=== PATIENT | female | born 1950 | race Caucasian/White ===

== ENCOUNTER → 2022-07-02 09:14 | Outpatient (CLI) | payer MEDICARE, OTHER, SELFPAY ==
[2022-07-02 10:22] LABS: Add Manual Diff / Slide Review NO; Basophils Absolute Auto 100 /uL (0-100); Basophils Percent Auto 0.8 % (0-2); Eosinophils Absolute Auto 200 /uL (0-450); Eosinophils Percent Auto 3.1 % (2-4); Hematocrit 40.7 % (36-46); Hemoglobin 13.5 g/dL (12.0-16.0); Lymphocytes Absolute Auto 2000 /uL (1100-4500); Mean Corpuscular HGB Conc 33.1 % (30-36); Mean Corpuscular Hemoglobin 29.1 PG (26-34); Monocytes Absolute Auto 500 /uL (0-900); Monocytes Percent Auto 6.9 % (3-14); Neutrophils Absolute Auto 4000 /uL (1500-7000); Neutrophils Percent Auto 59.2 % (50-75); Platelet Count 280 X10^3/uL (150-400); Red Blood Cell Count 4.63 X10^6/uL (4.0-5.2); Red Cell Distribution Width 13.7 % (11.6-14.8); White Blood Cell Count 6.8 X10^3/uL (4.5-11.0)
[2022-07-02 10:48] LABS: Alanine Aminotransferase 63 IU/L (<35); Albumin 4.1 g/dL (3.5-5.0); Albumin Globulin Ratio 1.3 (1.0-2.8); Alkaline Phosphatase 86 U/L (38-126); Aspartate Aminotransferase 46 IU/L (14-36); Bilirubin Total 0.4 mg/dL (0.2-1.3); Blood Urea Nitrogen 12 mg/dL (7-17); Carbon Dioxide 29 mmol/L (22-32); Chloride 103 mmol/L (98-107); Cholesterol 141 mg/dL (140-199); Estimated Glomerular Filt Rate > 60 mL/min (>60); Globulin 3.2 g/dL (1.7-4.1); Glucose 93 mg/dL (80-110); HDL Cholesterol 32 mg/dL (40-60); HEMOLYSIS < 15 (0-50); LDL Cholesterol Calculated 86 mg/dL (<100); Sodium 141 mmol/L (137-145); Total Protein 7.3 g/dL (6.3-8.2); Triglycerides 115 mg/dL (35-150)
[2022-07-02 13:04] LABS: Free T3, Triiodothyronine Free 3.02 pg/mL (2.77-5.27); Free T4, Direct Thyroxine 0.91 ng/dL (0.78-2.19)
[2022-07-02 13:17] LABS: Thyroid Stimulating Hormone 3.89 uIU/mL (0.47-4.68)
== END ==
PROVIDERS: PCP Family Medicine; Referring Provider Family Medicine; Visit Provider Family Medicine
DX: E78.5 Hyperlipidemia, unspecified (principal); Z13.220 Encounter for screening for lipoid disorders; R53.83 Other fatigue; Z13.228 Encounter for screening for other metabolic disorders; Z13.29 Encounter for screening for other suspected endocrine disorder
CPT/HCPCS: 36415; 80053; 80061; 84439; 84443; 84481; 85025

== ENCOUNTER → 2022-07-19 09:24 | Outpatient (CLI) | payer MEDICARE, OTHER, SELFPAY ==
[2022-07-19 11:12] LABS: Alanine Aminotransferase 37 IU/L (<35); Albumin 3.7 g/dL (3.5-5.0); Albumin Globulin Ratio 1.2 (1.0-2.8); Alkaline Phosphatase 89 U/L (38-126); Aspartate Aminotransferase 27 IU/L (14-36); BUN Creatinine Ratio 18.3 (6-22); Bilirubin Total 0.2 mg/dL (0.2-1.3); Blood Urea Nitrogen 15 mg/dL (7-17); Calcium 8.8 mg/dL (8.4-10.2); Carbon Dioxide 29 mmol/L (22-32); Chloride 103 mmol/L (98-107); Estimated Glomerular Filt Rate > 60 mL/min (>60); Glucose 90 mg/dL (80-110); HEMOLYSIS < 15 (0-50); Potassium 4.2 mmol/L (3.4-5.1); Sodium 138 mmol/L (137-145); Total Protein 6.7 g/dL (6.3-8.2)
== END ==
PROVIDERS: PCP Family Medicine; Referring Provider Family Medicine; Visit Provider Family Medicine
DX: D64.9 Anemia, unspecified (principal); E78.5 Hyperlipidemia, unspecified
CPT/HCPCS: 36415; 80053

== ENCOUNTER → 2022-07-29 09:16 | Outpatient (CLI) | payer MEDICARE, OTHER, SELFPAY ==
--- NOTE | 2022-07-29 09:19 | DI.ECHO.S_ITS ---
[place] [facility]---------+ [facility] +---------+ : : [address] : : : : [id number] : : : : Phone: [phone]+ Echocardiogram Report + + :Name: LINDA MENG Study Date: 07/29/2022 Height: 64 in : :[facility] ReadingLocation: Weight: 155 lb : : Gender: Female BSA: 1.8 m2 : :: 1950 Age: 72 yrs BP: 134/75 mmHg: :Reason For Study: Cardiomegaly : :Ordering Physician: Silverio, : :Junie Performed By: Kameron Ellis : :Referring: Junie Sawyer : + + Interpretation Summary The ejection fraction is estimated to be 60-65%. There is mild mitral regurgitation. The left ventricle is normal in size. Procedure: A two-dimensional transthoracic echocardiogram with color flow and Doppler was performed. The study quality was technically adequate. There is no prior echocardiogram noted for this patient. The patient was in normal sinus rhythm during the exam. Left Ventricle: The left ventricle is normal in size. Proximal septal thickening is noted. There is no echo evidence for significant left ventricular outflow tract obstruction. Left ventricular systolic function is normal. The ejection fraction is estimated to be 60-65%. There are no focal wall motion abnormalities. Diastolic function could not be accurately assessed due to unobtainable data. Right Ventricle: The right ventricle is normal in size and function. Atria: Both atria are normal in size. The interatrial septum grossly appears intact with no obvious evidence for an atrial septal defect. Mitral Valve: There is mild to moderate mitral annular calcification. There is mild mitral regurgitation. Aortic Valve: There is mild aortic valve sclerosis. There is trace aortic regurgitation. Tricuspid Valve: The tricuspid valve is normal in structure and function. There is a trace or physiologic amount of tricuspid regurgitation. Pulmonary artery pressures cannot be estimated because of the lack of a measurable TR jet velocity. Pulmonic Valve: The pulmonic valve is normal in structure and function. There is no pulmonic valvular regurgitation. Great Vessels: The aortic root is normal size. The dimensions of the ascending aorta are normal. The IVC is of normal diameter and collapses greater than 50% with a sniff. This suggests a low right atrial pressure of 3 mm Hg. Pericardium/ Pleura There is no pericardial effusion. There is no pleural effusion. MMode/2D Measurements & Calculations LVIDd: 4.4 cm LVOT diam: 2.0 cm LVIDs: 2.8 cm Ao root diam: 2.3 cm FS: 36.4 % asc Aorta Diam: 2.7 cm IVSd: 0.70 cm LVPWd: 0.80 cm LV jimenez. diameter/BSA (cm/m^2): 2.5 LV sys. diameter/BSA (cm/m^2): 1.6 LA dimension: 2.7 cm RA long axis: 4.0 cm LA A2 area: 15.4 cm2 RA area: 7.7 cm2 LA A4 area: 16.2 cm2 RA vol: 12.4 ml LA length (vol): 4.7 cm RA : 7.1 ml/m2 LA vol: 44.9 ml LA vol index: 25.6 ml/m2 TAPSE_phl: 2.1 cm Doppler Measurements & Calculations Ao V2 max: 201.0 cm/sec LVOT Max Lazaro: 167.0 cm/sec Ao V2 mean: 147.0 cm/sec LV V1 max P.2 mmHg Ao max P.0 mmHg LV V1 VTI: 36.6 cm Ao mean P.0 mmHg MIKEY(I,D): 2.8 cm2 Ao V2 VTI: 40.6 cm MIKEY(V,D): 2.6 cm2 sev ratio: 0.90 MIKEY indexed to BSA (cm^2/m^2): 1.6 MV E max lazaro: 111.0 cm/sec SV(LVOT): 115.0 ml MV A max lazaro: 134.0 cm/sec MV E/A: 0.83 Med Peak E' Lazaro: 5.3 cm/sec E/E' med: 20.9 Lat Peak E' Lazaro: 6.4 cm/sec E/E' lat: 17.4 E/e' average: 19.1 MV dec time: 0.29 sec AV VR_phl: 0.83 MV P1/2t-pr_phl: 84.0 msec MIKEY(VTI)/BSA_phl: 1.6 Reading Physician:10:13 AM
== END ==
PROVIDERS: PCP Family Medicine; Referring Provider Family Medicine; Visit Provider Family Medicine
DX: I08.0 Rheumatic disorders of both mitral and aortic valves (principal); K64.9 Unspecified hemorrhoids; E78.5 Hyperlipidemia, unspecified; Z86.79 Personal history of other diseases of the circulatory system; Z82.49 Family history of ischemic heart disease and other diseases of the circulatory system
CPT/HCPCS: 93306

== ENCOUNTER → 2022-11-20 13:32 | Outpatient (CLI) | payer MEDICARE, OTHER, SELFPAY ==
[2022-11-20 14:15] LABS: Add Manual Diff / Slide Review NO; Basophils Absolute Auto 100 /uL (0-100); Eosinophils Absolute Auto 300 /uL (0-450); Eosinophils Percent Auto 4.3 % (2-4); Hematocrit 37.6 % (36-46); Hemoglobin 12.7 g/dL (12.0-16.0); Lymphocytes Absolute Auto 2000 /uL (1100-4500); Lymphocytes Percent Auto 28.3 % (25-40); Mean Corpuscular HGB Conc 33.9 % (30-36); Mean Corpuscular Hemoglobin 30.2 PG (26-34); Mean Corpuscular Volume 89.1 fL (80-100); Monocytes Absolute Auto 500 /uL (0-900); Monocytes Percent Auto 7.3 % (3-14); Neutrophils Absolute Auto 4200 /uL (1500-7000); Neutrophils Percent Auto 59.1 % (50-75); Platelet Count 327 X10^3/uL (150-400); Red Blood Cell Count 4.22 X10^6/uL (4.0-5.2); Red Cell Distribution Width 12.9 % (11.6-14.8); White Blood Cell Count 7.1 X10^3/uL (4.5-11.0)
[2022-11-20 14:28] LABS: Cholesterol 320 mg/dL (140-199); HDL Cholesterol 37 mg/dL (40-60); LDL Cholesterol Calculated 210 mg/dL (<100); Triglycerides 364 mg/dL (35-150)
[2022-11-20 14:30] LABS: Alanine Aminotransferase 19 IU/L (<35); Albumin 4.2 g/dL (3.5-5.0); Albumin Globulin Ratio 1.4 (1.0-2.8); Alkaline Phosphatase 79 U/L (38-126); Aspartate Aminotransferase 23 IU/L (14-36); BUN Creatinine Ratio 18.7 (6-22); Bilirubin Total 0.3 mg/dL (0.2-1.3); Blood Urea Nitrogen 14 mg/dL (7-17); Calcium 9.6 mg/dL (8.4-10.2); Carbon Dioxide 30 mmol/L (22-32); Chloride 101 mmol/L (98-107); Estimated Glomerular Filt Rate > 60 mL/min (>60); Globulin 2.9 g/dL (1.7-4.1); Glucose 79 mg/dL (80-110); HEMOLYSIS < 15 (0-50); Sodium 139 mmol/L (137-145); Total Protein 7.1 g/dL (6.3-8.2)
== END ==
PROVIDERS: PCP Family Medicine; Referring Provider Family Medicine; Visit Provider Family Medicine
DX: G43.909 Migraine, unspecified, not intractable, without status migrainosus (principal); E78.5 Hyperlipidemia, unspecified; H53.9 Unspecified visual disturbance; M54.2 Cervicalgia; R42 Dizziness and giddiness; I51.7 Cardiomegaly; K64.9 Unspecified hemorrhoids; Z82.49 Family history of ischemic heart disease and other diseases of the circulatory system; Z86.79 Personal history of other diseases of the circulatory system
CPT/HCPCS: 80053; 80061; 84443; 85025

== ENCOUNTER → 2023-04-07 07:58 | Outpatient (CLI) | payer MEDICARE, OTHER, SELFPAY ==
--- NOTE | 2023-04-07 07:59 | DI.ECHO.S_ITS ---
[place] [facility]---------+ [facility] +---------+ : : [address] : : : : [id number] : : : : Phone: [phone]+ Echocardiogram Report + + :Name: LINDA MENG Study Date: 04/07/2023 Height: 64 in : :[facility] ReadingLocation: Weight: 165 lb : : Gender: Female BSA: 1.8 m2 : :: 1950 Age: 72 yrs BP: 130/71 mmHg: :Reason For Study: CARDIAC MURMUR : :Ordering Physician: Loraine DOLLformed By: Lynne Farr : :Referring: CONY DOLL : + + Interpretation Summary The left ventricular cavity is small. Proximal septal thickening is noted. The left ventricular outflow velocity with valsalva is Moderate.. The left ventricle is hyperdynamic. The ejection fraction is estimated to be 70-75%. Previous LVEF 60 to 65%. MV E/A: 1.1 Med Peak E' Lazaro: 5.0 cm/sec E/E' med: 29.4. It suggest elevated filling pressure. The right ventricle is normal in size and function. Heavy posterior mitral annulus calcification with some restriction of posterior mitral leaflet without any significant mitral stenosis. Suspect mild mitral stenosis. There is moderate mitral regurgitation. Compared to the prior echo study, there has been an increase in the severity of mitral regurgitation. The aortic valve is not well visualized. The peak aortic velocity is 2.5 m/sec. The aortic valve mean gradient is 16 mmHg. Elevated LV outflow tract velocity about 1.6 m/s. Likely elevated LV outflow tract and aortic valve velocity due to hyperdynamic LV. However mild aortic stenosis cannot be ruled out. No hemodynamically significant aortic stenosis. There is mild aortic regurgitation. The IVC is of normal diameter and collapses greater than 50% with a sniff. This suggests a low right atrial pressure of 3 mm Hg. Procedure: A two-dimensional transthoracic echocardiogram with color flow and Doppler was performed. The study quality was technically adequate. Comparison is made with the echocardiogram of 07/29/2022. The patient was in sinus rhythm with heart rates between 64-68 bpm during the exam. Left Ventricle: Proximal septal thickening is noted. There is mild concentric left ventricular hypertrophy. The left ventricular cavity is small. The left ventricular outflow velocity with valsalva is Moderate.. There is no thrombus. The ejection fraction is estimated to be 70-75%. The left ventricle is hyperdynamic. There are no focal wall motion abnormalities. MV E/A: 1.1 Med Peak E' Lazaro: 5.0 cm/sec E/E' med: 29.4. It suggest elevated filling pressure. Right Ventricle: The right ventricle is normal in size and function. The right ventricular systolic function is normal. Atria: The left atrium is mildly dilated. The left atrium has mildly increased in size since the prior echo exam. Right atrial size is normal. There is no Doppler evidence for an interatrial shunt. Mitral Valve: The mitral valve leaflets are mildly calcified. Heavy posterior mitral annulus calcification with some restriction of posterior mitral leaflet without any significant mitral stenosis. The mitral valve mean gradient is 4.1 mmHg. There is moderate mitral regurgitation. There are multiple regurgitant jets present. Compared to the prior echo study, there has been an increase in the severity of mitral regurgitation. Aortic Valve: The aortic valve is moderately calcified. There is discrete nodular thickening of the non- coronary cusp. The aortic valve is not well visualized. The peak aortic velocity is 2.5 m/sec. The aortic valve mean gradient is 16 mmHg. There is mild aortic stenosis. Elevated LV outflow tract velocity about 1.6 m/s. Likely elevated LV outflow tract and aortic valve velocity due to hyperdynamic LV. However mild aortic stenosis cannot be ruled out. No hemodynamically significant aortic stenosis. There is mild aortic regurgitation. Tricuspid Valve: There is trace tricuspid regurgitation. Pulmonary artery pressures cannot be estimated because of the lack of a measurable TR jet velocity. Pulmonic Valve: The pulmonic valve is not well seen, but is grossly normal. There is no pulmonic valvular regurgitation. Great Vessels: The aortic root is normal size. The dimensions of the ascending aorta are normal. The IVC is of normal diameter and collapses greater than 50% with a sniff. This suggests a low right atrial pressure of 3 mm Hg. Pericardium/ Pleura There is no pericardial effusion. There is no pleural effusion. MMode/2D Measurements & Calculations LVIDd: 3.7 cm LVOT diam: 1.8 cm LVIDs: 2.2 cm Ao root diam: 2.3 cm FS: 39.4 % asc Aorta Diam: 2.6 cm IVSd: 1.0 cm Ao Arch Diam (Prox Trans): 3.2 cm LVPWd: 1.3 cm LV jimenez. diameter/BSA (cm/m^2): 2.0 LV sys. diameter/BSA (cm/m^2): 1.2 LA A2 area: 18.8 cm2 RA long axis: 3.8 cm LA A4 area: 21.6 cm2 RA area: 10.4 cm2 LA length (vol): 5.4 cm RA vol: 23.9 ml LA vol: 64.3 ml RA : 13.3 ml/m2 LA vol index: 35.7 ml/m2 IVC diam: 1.5 cm RVD1 (basal): 2.9 cm RVD2 (mid): 2.3 cm TAPSE: 1.8 cm Doppler Measurements & Calculations Ao V2 max: 248.5 cm/sec LVOT Max Lazaro: 157.3 cm/sec Ao V2 mean: 187.2 cm/sec LV V1 max P.9 mmHg Ao max P.0 mmHg LV V1 VTI: 38.6 cm Ao mean P.7 mmHg MIKEY(I,D): 1.7 cm2 Ao V2 VTI: 57.0 cm MIKEY(V,D): 1.6 cm2 sev ratio: 0.68 MIKEY indexed to BSA (cm^2/m^2): 0.97 MV E max lazaro: 147.5 cm/sec PA V2 max: 120.7 cm/sec MV A max lazaro: 131.2 cm/sec PA V2 mean: 82.2 cm/sec MV E/A: 1.1 PA mean P.0 mmHg Med Peak E' Lazaro: 5.0 cm/sec PA pr(Accel): 34.5 mmHg E/E' med: 29.4 Lat Peak E' Lazaro: 5.1 cm/sec E/E' lat: 29.0 E/e' average: 29.2 MV dec time: 0.33 sec MVA(VTI): 1.9 cm2 MV V2 mean: 96.1 cm/sec SV(LVOT): 99.6 ml MV mean P.1 mmHg MV V2 VTI: 51.9 cm Reading Physician:04:38 PM
== END ==
PROVIDERS: PCP Family Medicine; Referring Provider Family Medicine; Visit Provider Family Medicine
DX: I08.0 Rheumatic disorders of both mitral and aortic valves; R01.1 Cardiac murmur, unspecified; Z82.49 Family history of ischemic heart disease and other diseases of the circulatory system
CPT/HCPCS: 93306

== ENCOUNTER 2023-04-28 12:04 | Emergency (ER) | payer MEDICARE, OTHER, SELFPAY ==
[2023-04-28 12:45] VITALS: BP 183/77; PULSE 87; RESP 15; TEMP 36.9; O2SAT 98; BMI 28.3
--- NOTE | 2023-04-28 13:40 | ED_ITS ---
HPI - Extremity Problem <Veena Irvin PA-C - Last Filed: 04/28/23 18:32> General Chief complaint: Extremity Problem,Nontraumatic Stated complaint: lt arm pain, history of heart murmur Time Seen by Provider: 04/28/23 13:38 Source: patient Mode of arrival: Family Vehicle History of Present Illness HPI Narrative: 73-year-old female with past medical history asthma, sleep apnea, osteoarthritis, LVH, hyperlipidemia presents to the ED with left shoulder pain that radiates down to the left wrist. Patient states she is had these symptoms for the last 2-3 weeks, states that this onset of symptoms occurred after she h elped take down a tent after a are show. Patient states that the pain is aggravated with movement of the arm. Patient notes tenderness to palpation of the right upper shoulder. Patient denies chest pain, shortness of breath, nausea, vomiting, lightheadedness, dizziness, syncope. Related Data Home Medications Medication Instructions Recorded Confirmed meloxicam 7.5 mg tablet 7.5 mg PO BID 07/02/22 12/09/22 Previous Rx's Medication Instructions Recorded meclizine 25 mg tablet 25 mg PO DAILY PRN dizziness #20 12/09/22 tabs pravastatin 40 mg tablet 40 mg PO BEDTIME #90 tabs 12/25/22 desvenlafaxine succinate 100 mg 50 mg PO DAILY #30 tabs 03/28/23 tablet,extended release 24 hr (Pristiq) Allergies Allergy/AdvReac Type Severity Reaction Status Date / Time aspirin AdvReac Intermediate dyspnea Verified 04/28/23 13:02 Review of Systems <Veena Irvin PA-C - Last Filed: 04/28/23 18:32> Review of Systems ROS Unobtainable: All systems reviewed & are unremarkable except as noted in HPI and below Constitutional Constitutional: Denies chills, Denies fatigue, Denies fever(s), Denies frequent falls, Denies lethargy and Denies weakness Eyes Eyes: Denies change in vision, Denies eye discharge, Denies irritation and Denies loss of vision ENT Ears, Nose, Mouth, and Throat: Denies change in voice, Denies dizziness, Denies neck pain, Denies sore throat and Denies throat swelling Cardiovascular Cardiovascular: Denies chest pain, Denies irregular heart rhythm, Denies lightheadedness, Denies palpitations, Denies dyspnea, Denies dyspnea on exertion and Denies orthopnea Respiratory Respiratory: Denies cough, Denies dyspnea, Denies dyspnea on exertion and Denies wheezing Gastrointestinal Gastrointestinal: Denies abdominal pain, Denies change in bowel habits, Denies diarrhea, Denies nausea and Denies vomiting Genitourinary Genitourinary: Denies hematuria, Denies flank pain, Denies urinary incontinence and Denies urinary urgency Musculoskeletal Musculoskeletal: Denies back pain, Denies muscle weakness, Denies neck pain, Denies numbness and Denies tingling Comments: Left shoulder pain, radiating into the left wrist Integumentary/Breasts Skin/Breast: Denies pruritus, Denies erythema, Denies rash and Denies wounds Neurologic Neurologic: Denies behavioral changes, Denies confusion, Denies dizziness, Denies frequent falls, Denies loss of vision, Denies numbness, Denies tingling and Denies weakness Psychiatric Psychiatric: Denies anxiety, Denies behavioral changes, Denies confusion, Denies depression, Denies homicidal ideation and Denies suicidal ideation Endocrine Endocrine: Denies fatigue, Denies flushing and Denies palpitations Hematologic/Lymphatic Hematologic/Lymphatic: Denies easy bruising Allergic/Immunologic Allergic/Immunologic: Denies urticaria, Denies throat swelling and Denies whee zing Patient History <eVena Irvin PA-C - Last Filed: 04/28/23 18:32> Medical History Allergies Anxiety (~1999) Asthma Chicken pox Hearing loss Hx of cardiac murmur Migraines (~1977) Osteoarthritis (~1999) Osteopenia (~2008) Sleep apnea (~2019) Transaminitis Vertigo (~2017) Wears glasses Surgical History Anesthesia History of left knee replacement (~2007) History of partial hysterectomy (~1981) History of shoulder surgery (~2014) History of total right knee replacement (~2020) Status post rotator cuff repair (~2017) Family History Father Cancer Mother Cancer Brother Diabetes mellitus Hyperlipidemia Brother Rheumatoid arthritis Heart valve replaced Hyperlipidemia History of heart disease Sister Arthritis Sister Rheumatoid arthritis Heart valve replaced Grandfather History of heart disease Grandmother Breast cancer Grandfather Cancer Grandmother Cancer Family/Other Crohn's disease Social History Smoking Status: Never smoker alcohol intake: current substance use type: does not use Smoking Status: Never smoker alcohol intake frequency: 0-2 drinks per day Substance Use Type: does not use Exam <Veena Irvin PA-C - Last Filed: 04/28/23 18:32> Narrative Exam Narrative: Const General:?cooperative, healthy appearing and comfortable [facility] Head:?normal to inspection Ears:?hearing grossly normal bilaterally Nose:?external nose normal Face and sinus:?normal facial exam and sinuses nontender Mouth:?oral mucosae normal Throat:?posterior oropharynx normal Eyes General:?appearance normal, both eyes and all related structures Neck Neck:?normal visual inspection and no lymphadenopathy noted Resp Effort & Inspection:?normal respiratory effort Auscultation:?clear to auscultation bilaterally Cardio Rate:?regular rate Rhythm:?regular rhythm Musculoskeletal There is tenderness to palpation of the left upper shoulder, consistent with musculoskeletal etiology. There is full range of motion. Strength and sensation is intact. Patient is neurovascularly intact. Neuro General:?patient alert, patient awake and patient oriented x3 Initial Vital Signs Initial Vital Signs: Vital Signs Temperature 98.5 F 04/28/23 12:45 Pulse Rate 87 04/28/23 12:45 Respiratory Rate 15 04/28/23 12:45 Blood Pressure 183/77 H 04/28/23 12:45 Pulse Oximetry 98 04/28/23 12:45 Oxygen Delivery Method Room Air 04/28/23 12:45 <Jessica Post DO - Last Filed: 04/30/23 07:43> Initial Vital Signs Initial Vital Signs: Vital Signs Temperature 98.5 F 04/28/23 12:45 Pulse Rate 87 04/28/23 12:45 Respiratory Rate 15 04/28/23 12:45 Blood Pressure 183/77 H 04/28/23 12:45 Pulse Oximetry 98 04/28/23 12:45 Oxygen Delivery Method Room Air 04/28/23 12:45 Course <Veena Irvin PA-C - Last Filed: 04/28/23 18:32> Orders Ordered: Discontinued Medications Lidocaine (Lidocaine Patch 1 Each Adh..Patch) 1 each TOP NOW ONE Stop: 04/28/23 14:01 Last Admin: 04/28/23 14:13 Dose: 1 each Documented By: CTS Vital Signs Vital signs: Vital Signs - 8 hr 04/28/23 12:45 04/28/23 14:15 Temperature 98.5 F Pulse Rate 87 61 Respiratory Rate 15 16 Blood Pressure 183/77 H 163/72 H Pulse Oximetry 98 98 Oxygen Delivery Method Room Air Room Air <Jessica Post DO - Last Filed: 04/30/23 07:43> Orders Ordered: Discontinued Medications Lidocaine (Lidocaine Patch 1 Each Adh..Patch) 1 each TOP NOW ONE Stop: 04/28/23 14:01 Last Admin: 04/28/23 14:13 Dose: 1 each Documented By: CTS Vital Signs Vital signs: Vital Signs - 8 hr 04/28/23 12:45 04/28/23 14:15 Temperature 98.5 F Pulse Rate 87 61 Respiratory Rate 15 16 Blood Pressure 183/77 H 163/72 H Pulse Oximetry 98 98 Oxygen Delivery Method Room Air Room Air MDM - Extremity (Nontraumatic) <Veena Irvin PA-C - Last Filed: 04/28/23 18:32> MDM Narrative Medical decision making narrative: 73-year-old female with past medical history asthma, sleep apnea, osteoarthritis, LVH, hyperlipidemia presents to the ED with left shoulder pain that radiates down to the left wrist. History and physical exam is most consistent with a musculoskeletal etiology. Obtained an EKG which shows some sinus bradycardia, left ventricular hypertrophy but no acute ST T changes, no axis deviation. Recommend supportive care with lidocaine patch, Tylenol, ibuprofen, heat packs. Recommend follow-up with PCP and physical therapy for further evaluation. ED return precautions were discussed with patient. Patient verbalized understanding. Medical records reviewed: Yes Discharge Plan Departure Patient Disposition: Home Clinical Impression: Shoulder pain Instructions: DI for Shoulder Pain Activity Restrictions/Additional Instructions: You were evaluated in the ED today for left-sided shoulder pain and arm pain. Your EKG was normal. Your physical exam and history is reassuring, your pain is most consistent with a musculoskeletal sprain/strain. You may apply lidocaine patches, heat packs, take Tylenol or ibuprofen for your symptoms. Please follow-up with your PCP and physical therapist as soon as possible. Return to the ED if you have worsening symptoms, chest pain, shortness of breath. Prescriptions: No Action meclizine 25 mg tablet 25 mg PO DAILY PRN (Reason: dizziness) Qty: 20 0RF Rx Instructions: take 1/2 tab to 1 tab at bedtime. Will make drowsy, do not drive during therapy desvenlafaxine succinate [Pristiq] 100 mg tablet extended release 24 hr 50 mg PO DAILY Qty: 30 11RF meloxicam 7.5 mg tablet 7.5 mg PO BID Patient Comments: TAKE ONE OR TWO TABLETS BY MOUTH DAILY pravastatin 40 mg tablet 40 mg PO BEDTIME Qty: 90 3RF Referrals: Junie Sawyer DO [Primary Care Provider] - Stand Alone Forms: Patient Portal/API <Jessica Post DO - Last Filed: 04/30/23 07:43> Cosign ED Attending Dilcia Attestation: I was immediately available in the department for consultation. Documentation has been reviewed.
[2023-04-28] MEDS: LIDOCAINE PATCH 1 EACH ADH..PATCH TOP (14:13)
[2023-04-28 14:15] VITALS: BP 163/72; PULSE 61; RESP 16; O2SAT 98
== END 2023-04-28 14:16 | disposition home or self-care (01) ==
PROVIDERS: Emergency Provider Student in an Organized Health Care Education/Training Program; PCP Family Medicine
DX: M25.512 Pain in left shoulder (principal); R07.9 Chest pain, unspecified
CPT/HCPCS: 93005; 99282; 99283

== ENCOUNTER → 2023-12-13 08:31 | Outpatient (CLI) | payer MEDICARE, OTHER, SELFPAY ==
--- NOTE | 2023-12-13 09:00 | DI.MRI.S_ITS ---
PROCEDURE: MR HEAD/BRAIN WO/W CON INDICATIONS: Worsening headaches now intractable TECHNIQUE: Noncontrast axial T1 spin echo, axial T2 fast spin echo, sagittal and axial FLAIR, coronal T2 fast spin echo, axial gradient echo, axial diffusion and ADC through the brain. After the administration of contrast, axial and coronal and sagittal 3D VIBE or T1 spin echo with fat saturation through the brain. COMPARISON: None. FINDINGS: Image quality: Excellent. CSF Spaces: Basal cisterns are patent. No extra-axial fluid collections. Ventricles are normal in size and shape. Brain: No intracranial masses or hemorrhage. Santana/white matter interface is normal. Brainstem appears normal. Diffusion-weighted sequence is unremarkable without evidence of acute infarct. Normal intravascular flow voids are present. Mild white matter chronic ischemic change Skull and face: Calvarial marrow is normal in signal. Orbits appear normal. Bilateral intraocular lens replacements noted. Sinuses: Sinuses and mastoids appear clear. IMPRESSION: Mild white matter chronic ischemic change without intracranial hemorrhage, infarct or mass lesion Approved by: Brown Forde M.D. on 12/15/2023 at 18:53
== END ==
PROVIDERS: PCP Family Medicine; Referring Provider Family Medicine; Visit Provider Family Medicine
DX: G43.911 Migraine, unspecified, intractable, with status migrainosus (principal); R42 Dizziness and giddiness; H93.19 Tinnitus, unspecified ear
CPT/HCPCS: 70553; A9579

== ENCOUNTER → 2024-03-25 14:24 | Outpatient (CLI) | payer MEDICARE, OTHER, SELFPAY ==
--- NOTE | 2024-03-25 14:28 | DI.RAD.S_ITS ---
PROCEDURE: XR KNEE LT 3V INDICATIONS: Left knee pain TECHNIQUE: 3 views of the knee were acquired. COMPARISON: None. FINDINGS: Bones: No fractures or dislocations. No suspicious bony lesions. Knee arthroplasty. Hardware is intact without hardware fracture or periprosthetic lucency to suggest loosening. Alignment is stable. Soft tissues: No joint effusion. No suspicious soft tissue calcifications. IMPRESSION: Knee arthroplasty without of hardware fracture or periprosthetic lucency to suggest loosening. Dictated by: Kandis Shepherd M.D. on 03/25/2024 at 23:18 Approved by: Kandis Shepherd M.D. on 03/25/2024 at 23:19
== END ==
PROVIDERS: PCP Family Medicine; Referring Provider Physician Assistant; Visit Provider Physician Assistant
DX: M25.562 Pain in left knee (principal); Z96.652 Presence of left artificial knee joint
CPT/HCPCS: 73562

== ENCOUNTER → 2024-03-31 11:34 | Outpatient (CLI) | payer MEDICARE, OTHER, SELFPAY ==
[2024-03-31 13:55] LABS: COVID19 -Nasal RAPID Negative (Negative)
== END ==
PROVIDERS: PCP Family Medicine; Visit Provider Physician Assistant
DX: Z20.822 Contact with and (suspected) exposure to COVID-19 (principal)
CPT/HCPCS: 87635

== ENCOUNTER 2024-04-02 10:13 | Emergency (ER) | payer MEDICARE, OTHER, SELFPAY ==
[2024-04-02 10:14] VITALS: BP 178/77; PULSE 81; RESP 14; TEMP 36.6; O2SAT 97; BMI 27.9
--- NOTE | 2024-04-02 10:18 | EKG_ITS ---
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
--- NOTE | 2024-04-02 10:18 | DI.RAD.S_ITS ---
PROCEDURE: XR CHEST 1V INDICATIONS: Shortness of breath TECHNIQUE: One view of the chest was acquired. COMPARISON: None. FINDINGS: Surgical changes and devices: None. Lungs and pleura: Lungs are clear. No pleural effusions or pneumothorax. Mediastinum: Mediastinal contours appear normal. Heart size is normal. Bones and chest wall: No suspicious bony lesions. Overlying soft tissues appear unremarkable. IMPRESSION: No acute cardiopulmonary abnormality is seen. Dictated by: Rafi Rodriguez M.D. on 04/02/2024 at 11:32 Approved by: Rafi Rodriguez M.D. on 04/02/2024 at 11:33
[2024-04-02 10:22] VITALS: PULSE 71; RESP 20; O2SAT 97
[2024-04-02 10:30] VITALS: BP 156/68; PULSE 68; O2SAT 97
--- NOTE | 2024-04-02 10:33 | ED.GENADULT ---
HPI - General Adult General Chief complaint: Shortness of Breath/Dyspnea Stated complaint: diff breathing, poss reaction to medication Time Seen by Provider: 04/02/24 10:15 Source: patient Mode of arrival: Ambulatory History of Present Illness HPI narrative: Patient is a 73-year-old female who states she had a history of asthma as a child. Not on any inhalers. Is here for evaluation of a couple days of difficulty breathing. States that she feels like she was wheezing specific when she was lying down. She has been exposed to COVID. Was seen by primary provider yesterday. Had a COVID test was negative. She was also on metoprolol. Was told that potentially metoprolol could trigger her asthma. She denies chest pain. No lower extremity swelling. No fevers. Related Data Home Medications Medication Instructions Recorded Confirmed B vitamins w folate PO 11/26/23 03/25/24 magnesium glycinate PO 11/26/23 03/25/24 Previous Rx's Medication Instructions Recorded losartan 25 mg tablet 25 mg PO DAILY #90 tabs 11/26/23 pravastatin 40 mg tablet 40 mg PO BEDTIME #90 tabs 01/05/24 amlodipine 5 mg tablet 5 mg PO DAILY #90 tabs 01/07/24 metoprolol succinate 25 mg 25 mg PO DAILY #90 tabs 03/08/24 tablet,extended release 24 hr citalopram 20 mg tablet 20 mg PO DAILY #30 tabs 03/31/24 meloxicam 15 mg tablet 15 mg PO DAILY PRN arthritis pain 03/31/24 #30 tabs Allergies Allergy/AdvReac Type Severity Reaction Status Date / Time aspirin AdvReac Intermediate dyspnea Verified 04/02/24 10:22 Review of Systems Review of Systems ROS Unobtainable: All systems reviewed & are unremarkable except as noted in HPI and below Patient History Medical History Intractable migraine with status migrainosus Family history of aortic stenosis Transaminitis Wears glasses Hearing loss Osteoarthritis (~1999) Sleep apnea (~2019) Asthma Allergies Migraines (~1977) Osteopenia (~2008) Chicken pox Vertigo (~2017) Hx of cardiac murmur Surgical History Anesthesia History of total right knee replacement (~2020) History of shoulder surgery (~2014) History of left knee replacement (~2007) Status post rotator cuff repair (~2017) History of partial hysterectomy (~1981) Family History Father Cancer Mother Cancer Brother Diabetes mellitus Hyperlipidemia Brother Rheumatoid arthritis Heart valve replaced Hyperlipidemia History of heart disease Sister Arthritis Sister Rheumatoid arthritis Heart valve replaced Grandfather History of heart disease Grandmother Breast cancer Grandfather Cancer Grandmother Cancer Family/Other Crohn's disease Social History Smoking Status: Never smoker alcohol intake: current substance use type: does not use Smoking Status: Never smoker alcohol intake frequency: holidays/special occasions only Substance Use Type: does not use Exam Initial Vital Signs Initial Vital Signs: Vital Signs Temperature 97.9 F 04/02/24 10:14 Pulse Rate 81 04/02/24 10:14 Respiratory Rate 14 04/02/24 10:14 Blood Pressure 178/77 H 04/02/24 10:14 Pulse Oximetry 97 04/02/24 10:14 Oxygen Delivery Method Room Air 04/02/24 10:14 Const General: cooperative, comfortable and No ill appearing HENMT Head: normal to inspection and normocephalic Resp Effort & Inspection: normal respiratory effort Auscultation: clear to auscultation bilaterally Cardio Rate: regular rate Rhythm: regular rhythm Skin General: no rashes or lesions noted Extrem General: No edema Course Orders Ordered: ED Orders 04/02/24 10:18 XR chest 1V Stat EKG-12 Lead Stat 04/02/24 10:25 Complete Blood Count AUTO DIFF Stat Comprehensive Metabolic Panel Stat Lipase Stat Troponin & CK Cardiac Panel Stat 04/02/24 10:30 Respiratory Panel (Film Array) Stat Vital Signs Vital signs: Vital Signs - 8 hr 04/02/24 10:14 04/02/24 10:22 04/02/24 10:30 Temperature 97.9 F Pulse Rate 81 71 Respiratory Rate 14 20 Blood Pressure 178/77 H 156/68 H Pulse Oximetry 97 97 Oxygen Delivery Method Room Air 04/02/24 10:30 04/02/24 11:00 04/02/24 11:00 Temperature Pulse Rate 68 66 Respiratory Rate 14 Blood Pressure 136/65 Pulse Oximetry 97 99 Oxygen Delivery Method 04/02/24 11:30 Temperature Pulse Rate 65 Respiratory Rate Blood Pressure Pulse Oximetry 96 Oxygen Delivery Method Medical Decision Making Lab Data Lab results reviewed: Yes I reviewed the patient's lab results. 04/02/24 10:25 04/02/24 10:25 Labs: Lab Results 04/02/24 04/02/24 Range/Units 10:25 10:30 WBC 8.7 (4.5-11.0) X10^3/uL RBC 4.21 (4.0-5.2) X10^6/uL Hgb 12.2 (12.0-16.0) g/dL Hct 36.8 (36-46) % MCV 87.4 (80-100) fL MCH 29.1 (26-34) PG MCHC 33.3 (30-36) % RDW 14.1 (11.6-14.8) % Plt Count 327 (150-400) X10^3/uL Neut % (Auto) 67.8 (50-75) % Lymph % (Auto) 21.2 L (25-40) % [place] % (Auto) 8.0 (3-14) % Eos % (Auto) 2.4 (2-4) % Baso % (Auto) 0.6 (0-2) % Neut # (Auto) 5900 (6607-7823) /uL Lymph # (Auto) 1800 (3666-0748) /uL [place] # (Auto) 700 (0-900) /uL Eos # (Auto) 200 (0-450) /uL Baso # (Auto) 0 (0-100) /uL Sodium 139 (137-145) mmol/L Potassium 4.3 (3.4-5.1) mmol/L Chloride 110 H (98-107) mmol/L Carbon Dioxide 22 (22-32) mmol/L BUN 16 (7-17) mg/dL Creatinine 1.00 (0.52-1.04) mg/dL Estimated GFR 60 (>60) mL/min BUN/Creatinine Ratio 16.0 (6-22) Glucose 110 (80-110) mg/dL Calcium 9.1 (8.4-10.2) mg/dL Total Bilirubin 0.4 (0.2-1.3) mg/dL AST 26 (14-36) IU/L ALT 22 (<35) IU/L Alkaline Phosphatase 77 (38-126) U/L Total Creatine Kinase 195 H (30-135) U/L Troponin I < 0.012 (0.01-0.034) ng/mL Total Protein 7.3 (6.3-8.2) g/dL Albumin 4.3 (3.5-5.0) g/dL Globulin 3.0 (1.7-4.1) g/dL Albumin/Globulin Ratio 1.4 (1.0-2.8) Lipase 242 (23-300) U/L Chlamy pneumoniae PCR Not detected (Not Detect) Adenovirus (PCR) Not detected (Not Detect) B.parapertussis DNA PCR Not detected (Not Detecte) Coronavirus OC43 (PCR) Not detected (Not Detect) Coronavirus HKU1 (PCR) Not detected (Not Detect) Coronavirus 229E (PCR) Not detected (Not Detect) SARS-CoV-2 (PCR) Detected H (Not Detecte) Coronavirus NL63 (PCR) Not detected (Not Detect) Human Metapneumovir PCR Not detected (Not Detect) Influenza Type A (PCR) Not detected (Not Detect) Influenza Type B (PCR) Not detected (Not Detect) M. pneumoniae (PCR) Not detected (Not Detect) Parainfluenza 1 (PCR) Not detected (Not Detect) Parainfluenza 2 (PCR) Not detected (Not Detect) Parainfluenza 3 (PCR) Not detected (Not Detect) Parainfluenza 4 (PCR) Not detected (Not Detect) RSV (PCR) Not detected (Not Detect) Entero/Rhino (PCR) Not detected (Not Detect) ECG Data Attestation: I personally reviewed and interpreted this ECG as follows: Interpretation: Sinus rhythm Ventricular rate is 67 LVH Inverted T-waves lead 2 3 AVF, biphasic T-wave in V2, inverted T-waves V3 V4 V5 V6 Comparison to prior EKG from 04/28/2023 showed biphasic T-waves in V2 and V3 and inverted T-waves V4 V5 V6 MDM Narrative Medical decision making narrative: Patient is positive for COVID-19 which does explain her presenting symptoms today. Her EKG is unchanged from prior. No chest pain. Lungs are clear. Not hypoxic. No indication for antibiotics. Low suspicion for ACS/CHF. Discuss this with the patient. We discussed return precautions and follow-up instructions. She expressed understanding and agreement. Discharge Plan Departure Patient Disposition: Home Clinical Impression: COVID-19 Instructions: COVID-19 Activity Restrictions/Additional Instructions: Please follow all current CDC guidelines with regard to quarantine and your positive COVID-19 status. Continue to take all of your medications as directed. Contact your primary doctor for a follow-up. Return to the emergency department for new or worsening symptoms Prescriptions: No Action pravastatin 40 mg tablet 40 mg PO BEDTIME Qty: 90 3RF metoprolol succinate 25 mg tablet extended release 24 hr 25 mg PO DAILY Qty: 90 0RF losartan 25 mg tablet 25 mg PO DAILY Qty: 90 1RF B vitamins w folate PO magnesium glycinate PO amlodipine 5 mg tablet 5 mg PO DAILY Qty: 90 1RF meloxicam 15 mg tablet 15 mg PO DAILY PRN (Reason: arthritis pain) Qty: 30 1RF Rx Instructions: Take one tablet as needed daily for arthritis pain citalopram 20 mg tablet 20 mg PO DAILY Qty: 30 1RF Rx Instructions: Take 1/2 tablet daily for one week, then one tablet daily thereafter Referrals: Junie Sawyer DO [Primary Care Provider] - Stand Alone Forms: Patient Portal/API
[2024-04-02 10:47] LABS: Add Manual Diff / Slide Review NO; Basophils Absolute Auto 0 /uL (0-100); Basophils Percent Auto 0.6 % (0-2); Eosinophils Absolute Auto 200 /uL (0-450); Eosinophils Percent Auto 2.4 % (2-4); Hematocrit 36.8 % (36-46); Hemoglobin 12.2 g/dL (12.0-16.0); Lymphocytes Absolute Auto 1800 /uL (1100-4500); Lymphocytes Percent Auto 21.2 % (25-40); Mean Corpuscular HGB Conc 33.3 % (30-36); Mean Corpuscular Hemoglobin 29.1 PG (26-34); Mean Corpuscular Volume 87.4 fL (80-100); Monocytes Absolute Auto 700 /uL (0-900); Neutrophils Absolute Auto 5900 /uL (1500-7000); Neutrophils Percent Auto 67.8 % (50-75); Platelet Count 327 X10^3/uL (150-400); Red Blood Cell Count 4.21 X10^6/uL (4.0-5.2); Red Cell Distribution Width 14.1 % (11.6-14.8); White Blood Cell Count 8.7 X10^3/uL (4.5-11.0)
[2024-04-02 10:51] LABS: Alanine Aminotransferase 22 IU/L (<35); Albumin 4.3 g/dL (3.5-5.0); Albumin Globulin Ratio 1.4 (1.0-2.8); Alkaline Phosphatase 77 U/L (38-126); Aspartate Aminotransferase 26 IU/L (14-36); Bilirubin Total 0.4 mg/dL (0.2-1.3); Blood Urea Nitrogen 16 mg/dL (7-17); Calcium 9.1 mg/dL (8.4-10.2); Carbon Dioxide 22 mmol/L (22-32); Chloride 110 mmol/L (98-107); Creatine Kinase 195 U/L (30-135); Estimated Glomerular Filt Rate 60 mL/min (>60); Glucose 110 mg/dL (80-110); HEMOLYSIS < 15 (0-50); Lipase 242 U/L (23-300); Potassium 4.3 mmol/L (3.4-5.1); Sodium 139 mmol/L (137-145); Total Protein 7.3 g/dL (6.3-8.2)
[2024-04-02 11:00] VITALS: BP 136/65; PULSE 66; RESP 14; O2SAT 99
[2024-04-02 11:03] LABS: Troponin I < 0.012 ng/mL (0.01-0.034)
[2024-04-02 11:30] VITALS: PULSE 65; O2SAT 96
[2024-04-02 11:36] LABS: Adenovirus Not Detected (Not Detect); B. parapertussis Not Detected (Not Detecte); Bordetella pertussis Not Detected (Not Detect); Chlamydophila pneumoniae Not Detected (Not Detect); Coronavirus 229E Not Detected (Not Detect); Coronavirus HKU1 Not Detected (Not Detect); Coronavirus NL 63 Not Detected (Not Detect); Coronavirus OC43 Not Detected (Not Detect); Human Metapneumovirus Not Detected (Not Detect); Human Rhinovirus/Enterovirus Not Detected (Not Detect); Influenza A Not Detected (Not Detect); Influenza B Not Detected (Not Detect); Mycoplasma pneumoniae Not Detected (Not Detect); Parainfluenza Virus 1 Not Detected (Not Detect); Parainfluenza Virus 2 Not Detected (Not Detect); Parainfluenza Virus 3 Not Detected (Not Detect); Parainfluenza Virus 4 Not Detected (Not Detect); Respiratory Syncytial Virus Not Detected (Not Detect)
[2024-04-02 11:38] LABS: SARS- CoV-2 Detected (Not Detecte)
== END 2024-04-02 11:54 | disposition home or self-care (01) ==
PROVIDERS: Emergency Provider Emergency Medicine; PCP Family Medicine
DX: U07.1 COVID-19 (principal); R03.0 Elevated blood-pressure reading, without diagnosis of hypertension; R94.31 Abnormal electrocardiogram [ECG] [EKG]
CPT/HCPCS: 36415; 71045; 80053; 82550; 83690; 84484; 85025; 87633; 93005; 93010; 99283; 99284

== ENCOUNTER 2024-07-20 08:36 | Day surgery (SDC) | payer MEDICARE, OTHER, SELFPAY ==
--- NOTE | 2024-07-20 | PATH_ITS ---
[facility] Accession Number: [id number] No. of containers..01 Tissue . 01 Material submitted: . colon - RANDOM COLONIC BIOPSY . 01 Diagnosis: RANDOM COLONIC BIOPSY: Colonic mucosa with mild thickening of the subepithelial collagen table, suggestive of collagenous colitis. See comment. . Specimen Comments: While not definitive, the histologic features are suggestive of early collagenous colitis. STO 07/26/2024 1623 Local . 01 Electronically signed: . Luistio Betancourt MD, Pathologist NPI- [id number] . 01 Gross description: . RANDOM COLONIC BIOPSY: Received in formalin are 4 fragment(s) of paula, soft tissue measuring 0.2 x 0.1 x 0.1 cm to 0.5 x 0.2 x 0.2 cm submitted entirely in 1 cassette(s) /PITO 07/26/20243 Local . 01 Pathologist provided ICD-10: K52.89 . 01 CPT . 852287 Specimen Comment: A courtesy copy of this report has been sent to [phone] Performed at: [address] [facility] [address], [place], [place] [id number] MD Luisito Betancourt MD Phone: [phone]
[2024-07-20 10:24] VITALS: BP 151/70; PULSE 80; RESP 16; TEMP 36.5; O2SAT 97
--- NOTE | 2024-07-20 10:44 | PM.HP.1 ---
History of Present Illness History of Present Illness Date Patient Seen: 07/20/24 Time Patient Seen: 10:44 Chief complaint: Colonoscopy Narrative: 74-year-old woman with a chronic diarrhea here for diagnostic colonoscopy. Over the past several months chronic diarrhea with lower abdominal pain. No family history of colon cancer. Previous colonoscopy but date unclear. [facility] Medical History Intractable migraine with status migrainosus Family history of aortic stenosis Transaminitis Wears glasses Hearing loss Osteoarthritis (~1999) Sleep apnea (~2019) Asthma Allergies Migraines (~1977) Osteopenia (~2008) Chicken pox Vertigo (~2017) Hx of cardiac murmur Surgical History Anesthesia History of total right knee replacement (~2020) History of shoulder surgery (~2014) History of left knee replacement (~2007) Status post rotator cuff repair (~2017) History of partial hysterectomy (~1981) Family History Father Cancer Mother Cancer Brother Diabetes mellitus Hyperlipidemia Brother Rheumatoid arthritis Heart valve replaced Hyperlipidemia History of heart disease Sister Arthritis Sister Rheumatoid arthritis Heart valve replaced Grandfather History of heart disease Grandmother Breast cancer Grandfather Cancer Grandmother Cancer Family/Other Crohn's disease Social History Smoking Status: Never smoker alcohol intake: current substance use type: does not use Meds Home Medications and Allergies Home Medications Medication Instructions Recorded Confirmed Type B vitamins w folate PO 11/26/23 03/25/24 History magnesium glycinate PO 11/26/23 03/25/24 History pravastatin 40 mg tablet 40 mg PO BEDTIME #90 tabs 01/05/24 03/25/24 Rx losartan 25 mg tablet 25 mg PO DAILY #90 tabs 05/24/24 Rx metoprolol succinate 25 mg 25 mg PO DAILY #90 tabs 06/10/24 Rx tablet,extended release 24 hr citalopram 20 mg tablet 20 mg PO DAILY #90 tabs 06/21/24 Rx meloxicam 7.5 mg tablet 7.5 mg PO DAILY PRN arthritis pain 06/21/24 Rx #90 tabs sodium,potassium,mag sulfates 17.5 See Rx Instructions PO .COMPLEX 07/06/24 Rx gram-3.13 gram-1.6 gram oral soln #354 mL (Suprep Bowel Prep Kit) metoprolol succinate 50 mg 50 mg PO ONCE PM 07/20/24 07/20/24 History tablet,extended release 24 hr Allergies Allergy/AdvReac Type Severity Reaction Status Date / Time aspirin AdvReac Intermediate dyspnea Verified 07/20/24 09:51 Exam Vital Signs (past 8 hours): - 07/20/24 10:24 Temperature 97.7 F Pulse Rate 80 Respiratory Rate 16 Blood Pressure 151/70 H Pulse Oximetry 97 Oxygen Delivery Method Room Air Oxygen Delivery Method Room Air Narrative Exam Narrative: General adult woman alert oriented no acute distress Chest nonlabored respiration Extremities warm well perfused Assessment & Plan Assessment and plan (1) Irritable bowel syndrome with diarrhea: Status: Chronic Assessment & Plan narrative: Diagnostic colonoscopy is recommended. Technical details were discussed. Risks, benefits, alternatives explained. Risks including but not limited to myocardial infarction, aspiration, bleeding, pain, missed lesion, incomplete examination, need for further radiographic studies, intestinal injury, and need for major abdominal surgery were discussed. All questions were answered to their satisfaction, and they are in agreement with this plan. Time-Based Coding :: [TOTAL MINUTES] spent with patient and on the chart (including review of chart, obtaining history, exam, reviewing outside data, placing orders, documenting exam and treatment plan, and counseling patient) on [DATE].
[2024-07-20 11:10] VITALS: BP 84/47; PULSE 76; RESP 16; TEMP 37.2; O2SAT 96
[2024-07-20 11:15] VITALS: BP 86/52; PULSE 75; RESP 15; TEMP 37.1; O2SAT 96
[2024-07-20] MEDS: LACTATED RINGERS 1,000 ML 42 ML IV (11:20)
--- NOTE | 2024-07-20 11:20 | P.OP.COLON_ITS ---
Operative Date/Time/Diagnoses Date of procedure: 07/20/24 Time of procedure: 11:20 Pre-op diagnosis: Chronic diarrhea Procedure & Clinicians Study performed: Diagnostic colonoscopy Same procedure as scheduled: Yes Indications: Chronic diarrhea Surgeon: Yossi Mayes Procedure Notes Procedure in detail: The history and physical was performed/updated and the patient is ASA class is 2. The procedure was discussed in detail with the patient. Potential risks complications including infection, bleeding, missed diagnosis, perforation, need for surgery, and were explained. Their questions were answered and informed consent was obtained. Patient was brought to the procedure room and placed standard monitoring equipment. The patient's vital signs were monitored continuously throughout the entire procedure. Prior to starting time-out was performed. The patient was placed in the left lateral recumbent position. Procedural sedation was administered by anesthesia. Examination began with a thorough inspection of the perianal area there was no evidence of fissures, fistulae, external hemorrhoids or cutaneous malignancy. The colonoscopy scope was then placed into the anal canal and was advanced to the cecum, which was identified by the ileocecal va lve, the appendiceal orifice and the confluence of the taenia. The scope was then slowly withdrawn examining colon thoroughly in all directions, irrigating it of any residual stool. The scope was retroflexed within the rectum The patient tolerated the procedure well. They will be discharged once criteria are met. The prep was of good/excellent quality. The withdrawl time was 7 minutes. FINDINGS * Unremarkable colonoscopy. Normal healthy colonic mucosa without mass or polyps. Random colonic biopsies were taken with forceps Specimen(s): other (Random colon biopsy) Impression: Normal colonoscopy Post-procedure Recommendations: Will call with biopsy results Disposition: same day surgery
[2024-07-20 11:21] VITALS: BP 108/51; PULSE 71; RESP 16; TEMP 37.1; O2SAT 96
[2024-07-20 11:25] VITALS: BP 115/67; PULSE 71; RESP 16; TEMP 37.1; O2SAT 98
== END 2024-07-20 11:38 | disposition home or self-care (01) ==
PROVIDERS: PCP Family Medicine; Referring Provider Surgery; Visit Provider Surgery
PROC: 0DJD8ZZ Inspection of Lower Intestinal Tract, Via Natural or Artificial Opening Endoscopic (ICD-10-PCS; CPT 45378; principal; 2024-07-20 10:15)
DX: R19.7 Diarrhea, unspecified (principal)
CPT/HCPCS: 45380; J2704

== ENCOUNTER → 2024-10-05 13:48 | Outpatient (CLI) | payer MEDICARE, OTHER, SELFPAY ==
--- NOTE | 2024-10-05 13:50 | DI.RAD.S_ITS ---
PROCEDURE: XR CHEST 2V INDICATIONS: chronic SOB and wheezing TECHNIQUE: 2 views of the chest were acquired. COMPARISON: [facility], CR, XR CHEST 1V, 04/02/2024, 10:39. FINDINGS: Surgical changes and devices: None. Lungs and pleura: Lungs are clear. No pleural effusions or pneumothorax. Peribronchial cuffing. Mediastinum: Mediastinal contours are normal. Heart size is normal. Bones and chest wall: No suspicious bony abnormalities. Soft tissues appear unremarkable. IMPRESSION: Peribronchial cuffing, typically indicating infectious or inflammatory bronchitis. Dictated by: Rafi Rodriguez M.D. on 10/05/2024 at 15:57 Approved by: Rafi Rodriguez M.D. on 10/05/2024 at 15:59
== END ==
PROVIDERS: PCP Family Medicine; Referring Provider Physician Assistant; Visit Provider Physician Assistant
DX: R06.02 Shortness of breath (principal)
CPT/HCPCS: 71046

== ENCOUNTER 2024-10-05 14:11 | Emergency (ER) | payer MEDICARE, OTHER, SELFPAY ==
[2024-10-05 14:35] VITALS: BP 136/64; PULSE 66; RESP 16; TEMP 36.6; O2SAT 98; BMI 28.3
--- NOTE | 2024-10-05 16:45 | ED_ITS ---
HPI - Extremity Problem <Veena Irvin PA-C - Last Filed: 10/05/24 18:02> General Chief complaint: Extremity Problem,Nontraumatic Stated complaint: rt heal burning px, no known injury Time Seen by Provider: 10/05/24 16:40 Source: patient Mode of arrival: Ambulatory History of Present Illness HPI Narrative: 74-year-old female presents to the ED with 1 day of right heel and lower Achilles tendon pain. Patient states that she underwent a stress test for which she had to ride on a stationary bike, which she thinks might have contributed to these symptoms. Patient denies numbness, tingling, weakness. No trauma. Patient is able to bear weight and walk. Related Data Home Medications Medication Instructions Recorded Confirmed B vitamins w folate PO 11/26/23 10/05/24 magnesium glycinate PO 11/26/23 10/05/24 Previous Rx's Medication Instructions Recorded pravastatin 40 mg tablet 40 mg PO BEDTIME #90 tabs 01/05/24 metoprolol succinate 25 mg 25 mg PO DAILY #90 tabs 06/10/24 tablet,extended release 24 hr citalopram 20 mg tablet 20 mg PO DAILY #90 tabs 06/21/24 meloxicam 7.5 mg tablet 7.5 mg PO DAILY PRN arthritis pain 06/21/24 #90 tabs losartan 25 mg tablet 25 mg PO DAILY #90 tabs 08/26/24 albuterol sulfate 90 mcg/actuation 2 puff inhalation Q4-6H PRN 10/05/24 aerosol inhaler shortness of breath or wheezing #6.7 grams rimegepant 75 mg disintegrating 75 mg PO ONCE PRN migraine 10/05/24 [facility] headache #7 tabs Allergies Allergy/AdvReac Type Severity Reaction Status Date / Time aspirin AdvReac Intermediate dyspnea Verified 10/05/24 13:16 Review of Systems <Veena Irvin PA-C - Last Filed: 10/05/24 18:02> Constitutional Constitutional: Denies chills, Denies fatigue, Denies fever(s), Denies frequent falls, Denies lethargy and Denies weakness Eyes Eyes: Denies change in vision, Denies eye discharge, Denies irritation and Denies loss of vision ENT Ears, Nose, Mouth, and Throat: Denies change in voice, Denies dizziness, Denies neck pain, Denies sore throat and Denies throat swelling Cardiovascular Cardiovascular: Denies chest pain, Denies irregular heart rhythm, Denies lightheadedness, Denies palpitations, Denies dyspnea, Denies dyspnea on exertion and Denies orthopnea Respiratory Respiratory: Denies cough, Denies dyspnea, Denies dyspnea on exertion and Denies wheezing Gastrointestinal Gastrointestinal: Denies abdominal pain, Denies change in bowel habits, Denies diarrhea, Denies nausea and Denies vomiting Musculoskeletal Musculoskeletal: Denies neck pain and Denies numbness Comments: Right heel pain Integumentary/Breasts Skin/Breast: Denies pruritus, Denies erythema, Denies rash and Denies wounds Neurologic Neurologic: Denies behavioral changes, Denies confusion, Denies dizziness, Denies frequent falls, Denies loss of vision, Denies numbness and Denies weakness Psychiatric Psychiatric: Denies anxiety, Denies behavioral changes, Denies confusion, Denies depression, Denies homicidal ideation and Denies suicidal ideation Endocrine Endocrine: Denies fatigue, Denies flushing and Denies palpitations Hematologic/Lymphatic Hematologic/Lymphatic: Denies easy bruising Allergic/Immunologic Allergic/Immunologic: Denies urticaria, Denies throat swelling and Denies wheezing Patient History <Veena Irvin PA-C - Last Filed: 10/05/24 18:02> Medical History Intractable migraine with status migrainosus Family history of aortic stenosis Transaminitis Wears glasses Hearing loss Osteoarthritis (~1999) Sleep apnea (~2019) Asthma Allergies Migraines (~1977) Osteopenia (~2008) Chicken pox Vertigo (~2017) Hx of cardiac murmur Surgical History Anesthesia History of total right knee replacement (~2020) History of shoulder surgery (~2014) History of left knee replacement (~2007) Status post rotator cuff repair (~2017) History of partial hysterectomy (~1981) Family History Father Cancer Mother Cancer Brother Diabetes mellitus Hyperlipidemia Brother Rheumatoid arthritis Heart valve replaced Hyperlipidemia History of heart disease Sister Arthritis Sister Rheumatoid arthritis Heart valve replaced Grandfather History of heart disease Grandmother Breast cancer Grandfather Cancer Grandmother Cancer Family/Other Crohn's disease Social History Smoking Status: Never smoker alcohol intake: current substance use type: does not use Smoking Status: Never smoker alcohol intake frequency: holidays/special occasions only Exam <Veena Irvin PA-C - Last Filed: 10/05/24 18:02> Narrative Exam Narrative: Const General:?cooperative, healthy appearing and comfortable HENIA Head:?normal to inspection Ears:?hearing grossly normal bilaterally Nose:?external nose normal Face and sinus:?normal facial exam and sinuses nontender Mouth:?oral mucosae normal Throat:?posterior oropharynx normal Eyes General:?appearance normal, both eyes and all related structures Neck Neck:?normal visual inspection and no lymphadenopathy noted Resp Effort & Inspection:?normal respiratory effort Auscultation:?clear to auscultation bilaterally Cardio Rate:?regular rate Rhythm:?regular rhythm Musculoskeletal No swelling, bruising, deformity. There is mild tenderness to palpation of the right heel and distal Achilles tendon. Full range of motion. Strength and sensation is intact. Patient is able to bear weight and walk. Neurovascularly intact. Neuro General:?patient alert, patient awake and patient oriented x3 Initial Vital Signs Initial Vital Signs: Vital Signs Temperature 97.8 F 10/05/24 14:35 Pulse Rate 66 10/05/24 14:35 Respiratory Rate 16 10/05/24 14:35 Blood Pressure 136/64 10/05/24 14:35 Pulse Oximetry 98 10/05/24 14:35 Oxygen Delivery Method Room Air 10/05/24 14:35 <Mike Stover MD - Last Filed: 10/06/24 07:32> Initial Vital Signs Initial Vital Signs: Vital Signs Temperature 97.8 F 10/05/24 14:35 Pulse Rate 66 10/05/24 14:35 Respiratory Rate 16 10/05/24 14:35 Blood Pressure 136/64 10/05/24 14:35 Pulse Oximetry 98 10/05/24 14:35 Oxygen Delivery Method Room Air 10/05/24 14:35 Course <Veena Irvin PA-C - Last Filed: 10/05/24 18:02> Orders Ordered: ED Orders 10/05/24 16:52 XR ankle RT min 3V Stat XR calcaneus RT min 2V Stat Vital Signs Vital signs: Vital Signs - 8 hr 10/05/24 14:35 Temperature 97.8 F Pulse Rate 66 Respiratory Rate 16 Blood Pressure 136/64 Pulse Oximetry 98 Oxygen Delivery Method Room Air <Mike Stover MD - Last Filed: 10/06/24 07:32> Orders Ordered: ED Orders 10/05/24 16:52 XR ankle RT min 3V Stat XR calcaneus RT min 2V Stat Vital Signs Vital signs: Vital Signs - 8 hr 10/05/24 14:35 Temperature 97.8 F Pulse Rate 66 Respiratory Rate 16 Blood Pressure 136/64 Pulse Oximetry 98 Oxygen Delivery Method Room Air MDM - Extremity (Nontraumatic) <Veena Irvin PA-C - Last Filed: 10/05/24 18:02> MDM Narrative Medical decision making narrative: 74-year-old female presents to the ED with 1 day of right heel and lower Achilles tendon pain. Concern for musculoskeletal sprain/strain versus heel spurs versus stress fracture versus other. Will obtain x-ray to rule out fracture. X-ray shows posterior and plantar calcaneal spurs. Minimal Achilles tendon thickening near the insertion. Discussed findings with patient. Recommend Chevy wraps, heat/ice, elevation, rest, Tylenol, ibuprofen. Recommend follow-up with PCP as soon as possible for further evaluation. ED return precautions discussed with patient. Patient verbalized understanding. Medical records reviewed: Yes Discharge Plan Departure Patient Disposition: Home Clinical Impression: Heel pain Qualifiers: Laterality: right Qualified Code(s): M79.671 - Pain in right foot Instructions: Calcaneal Spur Activity Restrictions/Additional Instructions: You were evaluated in the ED today for heel pain. Your x-ray does show some heel spurs that could be contributing to your symptoms. You may apply ice for the next 2 days, followed by heat packs. You may rest the foot, elevated above heart level. You may apply an Chevy wrap for comfort. You may take Tylenol, ibuprofen for pain. Please follow-up with your PCP for further evaluation. Return to the ED if you have worsening symptoms, numbness, tingling, weakness. Prescriptions: No Action pravastatin 40 mg tablet 40 mg PO BEDTIME Qty: 90 3RF metoprolol succinate 25 mg tablet extended release 24 hr 25 mg PO DAILY Qty: 90 2RF meloxicam 7.5 mg tablet 7.5 mg PO DAILY PRN (Reason: arthritis pain) Qty: 90 1RF Rx Instructions: Take one tablet as needed daily for arthritis pain citalopram 20 mg tablet 20 mg PO DAILY Qty: 90 1RF losartan 25 mg tablet 25 mg PO DAILY Qty: 90 0RF B vitamins w folate PO magnesium glycinate PO albuterol sulfate 90 mcg/actuation HFA aerosol inhaler 2 puff inhalation Q4-6H PRN (Reason: shortness of breath or wheezing) Qty: 6.7 0RF Nurtec ODT 75 mg tablet,disintegrating 75 mg PO ONCE PRN (Reason: migraine headache) Qty: 7 0RF Rx Instructions: as a single dose Referrals: Junie Sawyer DO [Primary Care Provider] - Stand Alone Forms: Patient Portal/API/Survey ED Sign-out <Mike Stover MD - Last Filed: 10/06/24 07:32> Cosign ED Attending Cosclariceature Attestation: I was immediately available in the department for consultation. ?This documentation has been reviewed and I agree with assessment and plan. Supervised by Mike Stover MD
--- NOTE | 2024-10-05 16:52 | DI.RAD.S_ITS ---
PROCEDURE: XR ANKLE RT MIN 3V INDICATIONS: heel, achilles pain TECHNIQUE: 3 views of the ankle were acquired. COMPARISON: None. FINDINGS: Bones: No fractures or dislocations. Ankle mortise is normally aligned. No suspicious bony lesions. Plantar and posterior calcaneal spurs. Soft tissues: No tibiotalar joint effusion. Achilles tendon appears normal. IMPRESSION: No acute bony abnormality or significant effusion. Plantar and posterior calcaneal spur. Dictated by: Mickey Salazar M.D. on 10/05/2024 at 17:26 Approved by: Mickey Salazar M.D. on 10/05/2024 at 17:28
--- NOTE | 2024-10-05 16:52 | DI.RAD.S_ITS ---
PROCEDURE: XR CALCANEOUS RT MIN 2V INDICATIONS: heel, achilles pain TECHNIQUE: Two views of the calcaneus were acquired. COMPARISON: None. FINDINGS: Bones: No fractures or dislocations. No suspicious bony lesions. Posterior and plantar calcaneal spurs. Soft tissues: No suspicious calcifications. Minimal Achilles tendon thickening near the insertion. IMPRESSION: Posterior and plantar calcaneal spurs. Minimal Achilles tendon thickening near the insertion. Dictated by: Mickey Salazar M.D. on 10/05/2024 at 17:28 Approved by: Mickey Salazar M.D. on 10/05/2024 at 17:29
[2024-10-05 17:48] VITALS: BP 134/60; PULSE 70; RESP 20; TEMP 37; O2SAT 100
== END 2024-10-05 17:50 | disposition home or self-care (01) ==
PROVIDERS: Emergency Provider Student in an Organized Health Care Education/Training Program; PCP Family Medicine
DX: M79.671 Pain in right foot (principal); M25.571 Pain in right ankle and joints of right foot; R06.02 Shortness of breath
CPT/HCPCS: 71046; 73610; 73650; 99281; 99283

== ENCOUNTER → 2024-10-11 10:41 | Outpatient (CLI) | payer MEDICARE, OTHER, SELFPAY ==
[2024-10-11 11:56] LABS: Hemoglobin A1C% w Est Avg Glu 5.3 % (4.0-6.0)
[2024-10-11 11:58] LABS: Alanine Aminotransferase 20 IU/L (<35); Albumin 4.4 g/dL (3.5-5.0); Albumin Globulin Ratio 1.5 (1.0-2.8); Alkaline Phosphatase 69 U/L (38-126); Aspartate Aminotransferase 23 IU/L (14-36); BUN Creatinine Ratio 19.8 (6-22); Bilirubin Total 0.4 mg/dL (0.2-1.3); Blood Urea Nitrogen 19 mg/dL (7-17); Calcium 9.7 mg/dL (8.4-10.2); Carbon Dioxide 23 mmol/L (22-32); Chloride 109 mmol/L (98-107); Cholesterol 250 mg/dL (140-199); Estimated Glomerular Filt Rate > 60 mL/min (>60); Globulin 2.9 g/dL (1.7-4.1); Glucose 87 mg/dL (80-110); HDL Cholesterol 38 mg/dL (40-60); HEMOLYSIS < 15 (0-50); LDL Cholesterol Calculated 168 mg/dL (<100); Potassium 4.4 mmol/L (3.4-5.1); Sodium 140 mmol/L (137-145); Total Protein 7.3 g/dL (6.3-8.2); Triglycerides 219 mg/dL (35-150)
[2024-10-11 12:27] LABS: TSH w/ Reflex to FT4 2.08 uIU/mL (0.47-4.68)
[2024-10-12 04:12] LABS: CRP, High Sensitivity 5.94 mg/L (0.00-3.00)
== END ==
PROVIDERS: PCP Family Medicine; Referring Provider Family Medicine; Visit Provider Family Medicine
DX: R73.9 Hyperglycemia, unspecified (principal); I10 Essential (primary) hypertension; I35.0 Nonrheumatic aortic (valve) stenosis; E78.2 Mixed hyperlipidemia; R53.83 Other fatigue; D64.9 Anemia, unspecified
CPT/HCPCS: 36415; 80053; 80061; 83036; 84443; 86140

== ENCOUNTER → 2024-10-12 12:45 | Outpatient (CLI) | payer MEDICARE, OTHER, SELFPAY | PROVIDERS: PCP Family Medicine; Referring Provider Physician Assistant; Visit Provider Physician Assistant | DX: R06.02 Shortness of breath (principal); R94.2 Abnormal results of pulmonary function studies | CPT/HCPCS: 94060; 94726; 94729 ==

== ENCOUNTER 2024-12-24 21:53 | Emergency (ER) | payer MEDICARE, OTHER, SELFPAY ==
[2024-12-24 21:59] VITALS: BP 137/63; PULSE 71; RESP 20; TEMP 37.2; O2SAT 100; BMI 27.8
[2024-12-24 22:30] LABS: Strep Grp A by PCR Rapid Negative (Negative)
[2024-12-25] VITALS (10 sets, daily range): BP systolic 132–163; BP diastolic 67–70; PULSE 66–89; RESP 16–24; O2SAT 93–100
--- NOTE | 2024-12-25 01:02 | ED.GENADULT ---
HPI - General Adult General Chief complaint: Upper Respiratory Symptoms Stated complaint: allergic reaction to medication Time Seen by Provider: 12/25/24 00:37 Source: patient Mode of arrival: Ambulatory History of Present Illness HPI narrative: 74-year-old woman with a history of obstructive cardiomyopathy, sleep apnea, migraines, hypertension, question of asthma/COPD presents with 4 days of increasing wheeze. She states she feels fatigued, of the wheezes worse when she is laying down, she has had a nonproductive cough. Has not had fevers does not complain of chest pain, nausea, vomiting or diarrhea. She is having some body aches and some sore throat. After 4 days of symptoms she comes in for further evaluation. Related Data Home Medications Medication Instructions Recorded Confirmed B vitamins w folate PO 11/26/23 11/16/24 magnesium glycinate PO 11/26/23 11/16/24 Previous Rx's Medication Instructions Recorded metoprolol succinate 25 mg 25 mg PO DAILY #90 tabs 06/10/24 tablet,extended release 24 hr meloxicam 7.5 mg tablet 7.5 mg PO DAILY PRN arthritis pain 06/21/24 #90 tabs losartan 25 mg tablet 25 mg PO DAILY #90 tabs 08/26/24 albuterol sulfate 90 mcg/actuation 2 puff inhalation Q4-6H PRN 10/05/24 aerosol inhaler shortness of breath or wheezing #6.7 grams benzonatate 200 mg capsule 200 mg PO TID #30 caps 10/06/24 doxycycline hyclate 100 mg capsule 100 mg PO BID #14 caps 10/06/24 guaifenesin 1,200 mg tablet, 1,200 mg PO BID #30 tabs 10/06/24 extended release 12 hr rimegepant 75 mg disintegrating 75 mg PO ONCE PRN migraine 10/07/24 tablet (Nurtec ODT) headache #8 tabs levalbuterol tartrate 45 See Rx Instructions inhalation 12/10/24 mcg/actuation aerosol inhaler .COMPLEX #15 grams citalopram 20 mg tablet 20 mg PO DAILY #90 tabs 12/23/24 pravastatin 40 mg tablet 40 mg PO BEDTIME #90 tabs 12/23/24 prednisone 20 mg tablet See Rx Instructions .Route 12/25/24 .COMPLEX #12 tabs Allergies Allergy/AdvReac Type Severity Reaction Status Date / Time aspirin AdvReac Intermediate dyspnea Verified 11/16/24 09:28 Review of Systems Review of Systems Narrative: Pertinent positive and negative findings as per HPI Patient History Medical History Intractable migraine with status migrainosus Family history of aortic stenosis Transaminitis Wears glasses Hearing loss Osteoarthritis (~1999) Sleep apnea (~2019) Asthma Allergies Migraines (~1977) Osteopenia (~2008) Chicken pox Vertigo (~2017) Hx of cardiac murmur Surgical History Anesthesia History of total right knee replacement (~2020) History of shoulder surgery (~2014) History of left knee replacement (~2007) Status post rotator cuff repair (~2017) History of partial hysterectomy (~1981) Family History Father Cancer Mother Cancer Brother Diabetes mellitus Hyperlipidemia Brother Rheumatoid arthritis Heart valve replaced Hyperlipidemia History of heart disease Sister Arthritis Sister Rheumatoid arthritis Heart valve replaced Grandfather History of heart disease Grandmother Breast cancer Grandfather Cancer Grandmother Cancer Family/Other Crohn's disease Social History Smoking Status: Never smoker alcohol intake: current substance use type: does not use Smoking Status: Never smoker alcohol intake frequency: holidays/special occasions only Exam Initial Vital Signs Initial Vital Signs: Vital Signs Temperature 98.9 F 12/24/24 21:59 Pulse Rate 71 12/24/24 21:59 Respiratory Rate 20 12/24/24 21:59 Blood Pressure 137/63 12/24/24 21:59 Pulse Oximetry 100 12/24/24 21:59 Oxygen Delivery Method Room Air 12/24/24 21:59 General: Healthy appearing, in no acute distress. Able to give a complete and coherent history. Well-nourished well-developed HEENT: Moist mucous membranes, normal sclera with reactive pupils, Neck: No JVD, no cervical adenopathy Respiratory: Lungs with wheeze throughout all lung rodriguez, no rhonchi no wheezing Cardiac: Regular rate and rhythm Abdomen: Soft, nontender, no rebound or guarding, no flank pain Skin: Warm and dry, no rashes Neurologic: Grossly neurologically intact with no obvious asymmetries or abnormalities Extremities: no lower extremity edema, well perfused Psych: Cooperative, appropriate insight and affect Course Orders Ordered: ED Orders 12/24/24 22:00 Strep Grp A by PCR Rapid Stat 12/25/24 01:15 XR chest 1V Stat EKG-12 Lead Stat 12/25/24 01:20 Complete Blood Count AUTO DIFF Stat Comprehensive Metabolic Panel Stat Magnesium Stat NT-proBNP (BNP-Adult 18+) Stat Troponin I Stat Discontinued Medications Albuterol (Albuterol 2.5 Mg/3 Ml Neb (Adult)) 2.5 mg INH NOW ONE Stop: 12/25/24 01:15 Last Admin: 12/25/24 01:30 Dose: 2.5 mg Documented By: TT Albuterol/Ipratropium (Albuterol/Ipratropium 3 Ml Ampul) 3 ml INH NOW ONE Stop: 12/25/24 01:15 Last Admin: 12/25/24 01:30 Dose: 3 ml Documented By: TT Magnesium Sulfate (Magnesium Sulfate) 2 gm in 50 mls @ 150 mls/hr IV NOW ONE Stop: 12/25/24 03:01 Last Admin: 12/25/24 03:12 Dose: 150 mls/hr Documented By: Co-signed By: EARLE Methylprednisolone (Methylprednisolone 125 Mg/2 Ml Vial) 125 mg IV NOW ONE Stop: 12/25/24 01:15 Last Admin: 12/25/24 01:44 Dose: 125 mg Documented By: Vital Signs Vital signs: Vital Signs - 8 hr 12/24/24 21:59 12/25/24 00:35 12/25/24 00:36 Temperature 98.9 F Pulse Rate 71 67 Respiratory Rate 20 Blood Pressure 137/63 163/70 H Pulse Oximetry 100 99 Oxygen Delivery Method Room Air 12/25/24 00:36 12/25/24 01:00 12/25/24 01:30 Temperature Pulse Rate 66 67 69 Respiratory Rate 18 Blood Pressure Pulse Oximetry 100 97 98 Oxygen Delivery Method 12/25/24 01:33 12/25/24 03:01 Temperature Pulse Rate 67 84 Respiratory Rate 24 16 Blood Pressure 163/70 H Pulse Oximetry 98 96 Oxygen Delivery Method Room Air Room Air Medical Decision Making Lab Data 12/25/24 01:20 04/12/25 01:20 Labs: Lab Results 12/24/24 12/25/24 Range/Units 22:00 01:20 WBC 8.2 (4.5-11.0) X10^3/uL RBC 4.14 (4.0-5.2) X10^6/uL Hgb 12.2 (12.0-16.0) g/dL Hct 36.7 (36-46) % MCV 88.5 (80-100) fL MCH 29.5 (26-34) PG MCHC 33.4 (30-36) % RDW 13.5 (11.6-14.8) % Plt Count 295 (150-400) X10^3/uL Neut % (Auto) 75.2 H (50-75) % Lymph % (Auto) 14.0 L (25-40) % [facility] % (Auto) 6.0 (3-14) % Eos % (Auto) 3.6 (2-4) % Baso % (Auto) 1.2 (0-2) % Neut # (Auto) 6200 (2176-8913) /uL Lymph # (Auto) 1200 (3468-0157) /uL [facility] # (Auto) 500 (0-900) /uL Eos # (Auto) 300 (0-450) /uL Baso # (Auto) 100 (0-100) /uL Sodium 138 (137-145) mmol/L Potassium 4.5 (3.4-5.1) mmol/L Chloride 106 (98-107) mmol/L Carbon Dioxide 24 (22-32) mmol/L BUN 21 H (7-17) mg/dL Creatinine 1.18 H (0.52-1.04) mg/dL Estimated GFR 49 L (>60) mL/min BUN/Creatinine Ratio 17.8 (6-22) Glucose 107 (80-110) mg/dL Calcium 9.8 (8.4-10.2) mg/dL Magnesium 1.8 (1.6-2.3) mg/dL Total Bilirubin 0.4 (0.2-1.3) mg/dL AST 33 (14-36) IU/L ALT 27 (<35) IU/L Alkaline Phosphatase 70 (38-126) U/L Troponin I < 0.012 (0.01-0.034) ng/mL NT-Pro-B Natriuret Pep 404 H (<125) pg/mL Total Protein 7.9 (6.3-8.2) g/dL Albumin 4.6 (3.5-5.0) g/dL Globulin 3.3 (1.7-4.1) g/dL Albumin/Globulin Ratio 1.4 (1.0-2.8) Group A Strep (PCR) Negative (Negative) MDM Narrative Medical decision making narrative: CC: Sore throat cough wheeze 4 days increasing Complicating co-morbidities: Being worked up for obstructive cardiomyopathy, question asthma, hypertension Data collected from: patient Medical records reviewed: Primary care note from 12/15 is reviewed Differential considered: Viral syndrome with acute asthma exacerbation, cardiac wheeze with congestive heart failure, pneumonia, pneumothorax Exam documented above, pertinent findings include: Patient is alert and appropriate, able to speak in complete sentences, has significant wheeze throughout all lung rodriguez Lab Test results independently reviewed as above. Pertinent findings: CBC is unremarkable Chemistries show slight bump in creatinine to 1.18. GFR is at 49. Liver studies are unremarkable Troponin is undetectable BNP is minimally elevated Independently reviewed EKG: Sinus rhythm at a rate of 67. LVH with repolarization abnormalities. No acute ischemia Imaging studies independently reviewed: Chest x-ray shows some mild peribronchiolar cuffing, no cardiomegaly, no pulmonary infiltrates Treatments: DuoNeb, albuterol neb and 125 mg of Solu-Medrol, IV magnesium Re-evaluations: After the nebulizers her lungs are definitely open up with increasing wheeze. We will add magnesium Discussion: 74-year-old woman with sore throat cough and increased wheeze for the last 4 days. Workup does not suggest cardiac etiology, no evidence of acute coronary syndrome or congestive heart failure. Chest x-ray consistent with viral etiology. Suspect she has a viral upper respiratory infection causing an acute asthma exacerbation. She has responded to steroids IV, magnesium and nebulized treatment. Oxygen saturations are staying in the upper 90s. She does have both albuterol and Xopenex inhalers with a spacer at home. I see no signs of bacterial secondary infection, no indication for antibiotics. We will have her complete a prednisone taper, continue to use her beta agonist inhalers 2 puffs every 4-6 hours as needed. Discussed anticipated course of viral syndrome and asthma exacerbation. She does have follow up in the near future with Cardiology regarding her hypertrophic cardiomyopathy. At this time there was no indication for additional imaging studies or hospitalization. She is safe for discharge Discharge Plan Departure Patient Disposition: Home Clinical Impression: Acute upper respiratory infection Acute asthma exacerbation Qualifiers: Asthma severity: moderate Asthma persistence: persistent Qualified Code(s): J45.41 - Moderate persistent asthma with (acute) exacerbation Instructions: DI for Asthma -- Adult, DI for Viral Upper Respiratory Infection -- Adult Activity Restrictions/Additional Instructions: Thank you for coming in today Fortunately, I am seeing no indication of heart failure or heart attack like syndrome. With your sore throat, body aches, slight cough and asthma exacerbation I believe you do have an upper respiratory viral infection. The virus should begin to improve by day 7, it is common to have asthma symptoms lasting longer. I am going to recommend a prednisone taper, 40 mg for 3 days, 20 mg for 4 days and 10 mg for 4 days Prescription was electronically transmitted to [facility] in [place] Please continue to use either your albuterol or Xopenex 2 puffs every 4-6 hours as needed for wheezing along with your spacer If you feel that you are getting worse, more short of breath, worsening fevers, more productive cough or new symptoms you do need to return to the ER Prescriptions: New prednisone 20 mg tablet See Rx Instructions .ROUTE .COMPLEX Qty: 12 0RF Rx Instructions: 40mg x 3 days, 20mg x 4 days, 10mg x4 days No Action metoprolol succinate 25 mg tablet extended release 24 hr 25 mg PO DAILY Qty: 90 2RF meloxicam 7.5 mg tablet 7.5 mg PO DAILY PRN (Reason: arthritis pain) Qty: 90 1RF Rx Instructions: Take one tablet as needed daily for arthritis pain losartan 25 mg tablet 25 mg PO DAILY Qty: 90 0RF Nurtec ODT 75 mg tablet,disintegrating 75 mg PO ONCE PRN (Reason: migraine headache) Qty: 8 0RF Rx Instructions: as a single dose levalbuterol tartrate 45 mcg/actuation HFA aerosol inhaler See Rx Instructions inhalation .COMPLEX Qty: 15 0RF Rx Instructions: 1-2 puffs prior to exercise and/or with wheeze inhaled; not to exceed 12 puffs per 24 hours pravastatin 40 mg tablet 40 mg PO BEDTIME Qty: 90 3RF citalopram 20 mg tablet 20 mg PO DAILY Qty: 90 1RF B vitamins w folate PO magnesium glycinate PO albuterol sulfate 90 mcg/actuation HFA aerosol inhaler 2 puff inhalation Q4-6H PRN (Reason: shortness of breath or wheezing) Qty: 6.7 0RF doxycycline hyclate 100 mg capsule 100 mg PO BID Qty: 14 0RF guaifenesin 1,200 mg tablet extended release 12hr 1,200 mg PO BID Qty: 30 0RF benzonatate 200 mg capsule 200 mg PO TID Qty: 30 0RF Referrals: Junie Sawyer DO [Primary Care Provider] - Stand Alone Forms: Patient Portal/API/Survey
--- NOTE | 2024-12-25 01:15 | DI.RAD.S_ITS ---
PROCEDURE: XR CHEST 1V INDICATIONS: wheeze TECHNIQUE: One view of the chest was acquired. COMPARISON: [facility], CR, XR CHEST 2V, 10/05/2024, 13:49. FINDINGS: Surgical changes and devices: None. Lungs and pleura: Lungs are clear. No pleural effusions or pneumothorax. Mediastinum: Mediastinal contours appear normal. Heart size is normal. Bones and chest wall: No suspicious bony lesions. Overlying soft tissues appear unremarkable. IMPRESSION: No acute pulmonary process. Dictated by: Kandis Shepherd M.D. on 12/25/2024 at 1:49 Approved by: Kandis Shepherd M.D. on 12/25/2024 at 1:49
--- NOTE | 2024-12-25 01:21 | EKG_ITS ---
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
[2024-12-25] MEDS: ALBUTEROL/IPRATROPIUM 3 ML AMPUL INH (01:30)
[2024-12-25] MEDS: ALBUTEROL 2.5 MG/3 ML NEB (ADULT) INH (01:30)
[2024-12-25 01:34] LABS: Add Manual Diff / Slide Review NO; Basophils Absolute Auto 100 /uL (0-100); Basophils Percent Auto 1.2 % (0-2); Eosinophils Absolute Auto 300 /uL (0-450); Eosinophils Percent Auto 3.6 % (2-4); Hematocrit 36.7 % (36-46); Hemoglobin 12.2 g/dL (12.0-16.0); Lymphocytes Absolute Auto 1200 /uL (1100-4500); Mean Corpuscular HGB Conc 33.4 % (30-36); Mean Corpuscular Hemoglobin 29.5 PG (26-34); Mean Corpuscular Volume 88.5 fL (80-100); Monocytes Absolute Auto 500 /uL (0-900); Neutrophils Absolute Auto 6200 /uL (1500-7000); Neutrophils Percent Auto 75.2 % (50-75); Platelet Count 295 X10^3/uL (150-400); Red Blood Cell Count 4.14 X10^6/uL (4.0-5.2); Red Cell Distribution Width 13.5 % (11.6-14.8); White Blood Cell Count 8.2 X10^3/uL (4.5-11.0)
[2024-12-25 01:40] LABS: Magnesium 1.8 mg/dL (1.6-2.3)
[2024-12-25 01:41] LABS: Alanine Aminotransferase 27 IU/L (<35); Albumin 4.6 g/dL (3.5-5.0); Albumin Globulin Ratio 1.4 (1.0-2.8); Alkaline Phosphatase 70 U/L (38-126); Aspartate Aminotransferase 33 IU/L (14-36); BUN Creatinine Ratio 17.8 (6-22); Bilirubin Total 0.4 mg/dL (0.2-1.3); Blood Urea Nitrogen 21 mg/dL (7-17); Calcium 9.8 mg/dL (8.4-10.2); Carbon Dioxide 24 mmol/L (22-32); Chloride 106 mmol/L (98-107); Estimated Glomerular Filt Rate 49 mL/min (>60); Globulin 3.3 g/dL (1.7-4.1); Glucose 107 mg/dL (80-110); HEMOLYSIS < 15 (0-50); Potassium 4.5 mmol/L (3.4-5.1); Sodium 138 mmol/L (137-145); Total Protein 7.9 g/dL (6.3-8.2)
[2024-12-25] MEDS: methylPREDNISolone 125 MG/2 ML VIAL IV (01:44)
[2024-12-25 01:53] LABS: NT-proBNP (BNP-Adult 18+) 404 pg/mL (<125); Troponin I < 0.012 ng/mL (0.01-0.034)
[2024-12-25] MEDS: MAGNESIUM SULFATE 2 GM/50 ML PIGGYBACK IV (03:12)
== END 2024-12-25 03:55 | disposition home or self-care (01) ==
PROVIDERS: Emergency Provider Emergency Medicine; PCP Family Medicine
DX: J45.41 Moderate persistent asthma with (acute) exacerbation (principal); J06.9 Acute upper respiratory infection, unspecified
CPT/HCPCS: 36415; 71045; 80053; 83735; 83880; 84484; 85025; 87651; 93005; 94640; 96365; 96375; 99284; J2919; J3475; J7613

== ENCOUNTER 2024-12-26 16:45 | Emergency (ER) | payer MEDICARE, OTHER, SELFPAY ==
[2024-12-26] VITALS (9 sets, daily range): BP systolic 129–195; BP diastolic 54–93; PULSE 64–81; RESP 17–22; TEMP 36.6; O2SAT 96–98; BMI 27.8
--- NOTE | 2024-12-26 17:00 | DI.RAD.S_ITS ---
PROCEDURE: XR CHEST 1V INDICATIONS: shortness of breath TECHNIQUE: One view of the chest was acquired. COMPARISON: [facility], , XR CHEST 1V, 12/25/2024, 1:16. FINDINGS: Surgical changes and devices: None. Lungs and pleura: Lungs are clear. No pleural effusions or pneumothorax. Mediastinum: Mediastinal contours appear normal. Heart size is normal. Bones and chest wall: No suspicious bony lesions. Age-appropriate bony degenerative changes are seen. Overlying soft tissues appear unremarkable. IMPRESSION: Portable chest within normal limits for age. Dictated by: Dalton Bain M.D. on 12/26/2024 at 16:27 Approved by: Dalton Bain M.D. on 12/26/2024 at 16:27
--- NOTE | 2024-12-26 17:06 | EKG_ITS ---
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
[2024-12-26] MEDS: ALBUTEROL/IPRATROPIUM 3 ML AMPUL INH (17:13)
--- NOTE | 2024-12-26 17:14 | ED_ITS ---
HPI - SOB/Dyspnea General Chief Complaint: Shortness of Breath/Dyspnea Stated Complaint: here t-2, hard to breathe, light headed when cough Time Seen by Provider: 12/26/24 16:57 Source: patient Mode of arrival: Ambulatory Limitations: no limitations History of Present Illness HPI Narrative: 74-year-old female history of high blood pressure obstructive cardiomyopathy seen on 411 for cough, sorethroat, shortness of breath and wheezing given steroids on discharge after negative full cardiac workup still symptomatic today with cough shortness of breath and wheezing at this time. Patient denies active chest pain diaphoresis nausea vomiting fever or chills or diarrhea at this time. Other than what is stated 14 point review of system is negative Related Data Home Medications Medication Instructions Recorded Confirmed B vitamins w folate PO 11/26/23 11/16/24 magnesium glycinate PO 11/26/23 11/16/24 Previous Rx's Medication Instructions Recorded metoprolol succinate 25 mg 25 mg PO DAILY #90 tabs 06/10/24 tablet,extended release 24 hr meloxicam 7.5 mg tablet 7.5 mg PO DAILY PRN arthritis pain 06/21/24 #90 tabs losartan 25 mg tablet 25 mg PO DAILY #90 tabs 08/26/24 albuterol sulfate 90 mcg/actuation 2 puff inhalation Q4-6H PRN 10/05/24 aerosol inhaler shortness of breath or wheezing #6.7 grams benzonatate 200 mg capsule 200 mg PO TID #30 caps 10/06/24 doxycycline hyclate 100 mg capsule 100 mg PO BID #14 caps 10/06/24 guaifenesin 1,200 mg tablet, 1,200 mg PO BID #30 tabs 10/06/24 extended release 12 hr rimegepant 75 mg disintegrating 75 mg PO ONCE PRN migraine 10/07/24 tablet (Nurtec ODT) headache #8 tabs levalbuterol tartrate 45 See Rx Instructions inhalation 12/10/24 mcg/actuation aerosol inhaler .COMPLEX #15 grams citalopram 20 mg tablet 20 mg PO DAILY #90 tabs 12/23/24 pravastatin 40 mg tablet 40 mg PO BEDTIME #90 tabs 12/23/24 prednisone 20 mg tablet See Rx Instructions .Route 12/25/24 .COMPLEX #12 tabs amoxicillin 875 mg-potassium 1 tab PO Q12H #14 tabs 12/26/24 clavulanate 125 mg tablet azithromycin 250 mg tablet 250 mg PO DAILY 4 days #4 tabs 12/26/24 hydrocodone-homatropine 5 mg-1.5 5 ml PO Q6H PRN cough #473 mL 12/26/24 mg/5 mL oral syrup Allergies Allergy/AdvReac Type Severity Reaction Status Date / Time aspirin AdvReac Intermediate dyspnea Verified 12/26/24 16:53 Review of Systems Review of Systems ROS Unobtainable: All systems reviewed & are unremarkable except as noted in HPI and below Patient History Medical History Intractable migraine with status migrainosus Family history of aortic stenosis Transaminitis Wears glasses Hearing loss Osteoarthritis (~1999) Sleep apnea (~2019) Asthma Allergies Migraines (~1977) Osteopenia (~2008) Chicken pox Vertigo (~2017) Hx of cardiac murmur Surgical History Anesthesia History of total right knee replacement (~2020) History of shoulder surgery (~2014) History of left knee replacement (~2007) Status post rotator cuff repair (~2017) History of partial hysterectomy (~1981) Family History Father Cancer Mother Cancer Brother Diabetes mellitus Hyperlipidemia Brother Rheumatoid arthritis Heart valve replaced Hyperlipidemia History of heart disease Sister Arthritis Sister Rheumatoid arthritis Heart valve replaced Grandfather History of heart disease Grandmother Breast cancer Grandfather Cancer Grandmother Cancer Family/Other Crohn's disease Social History Smoking Status: Never smoker alcohol intake: current substance use type: does not use Smoking Status: Never smoker alcohol intake frequency: holidays/special occasions only Exam Narrative Exam Narrative: GENERAL: [74] year old patient appears stated age. Well-developed patient, in mild distress. HEAD: Atraumatic. Normocephalic. EYES: Pupils equal round and reactive. Extraocular motions intact. No scleral icterus. No injection or drainage. ENT: Nose without bleeding, purulent drainage. Throat without erythema, tonsillar hypertrophy or exudate. Airway patent. NECK: Trachea midline. Non tender CARDIOVASCULAR: Regular rate and rhythm without murmurs, gallops, or rubs. RESPIRATORY: Coarse rhonchi b/l GASTROINTESTINAL: Abdomen soft, non-tender, nondistended. EXTREMITIES: No edema or joint tenderness. BACK: Nontender without deformity or crepitance. No flank tenderness. NEURO: AOx3. SKIN: No rash or erythema of visible areas Initial Vital Signs Initial Vital Signs: Vital Signs Temperature 97.8 F 12/26/24 16:48 Pulse Rate 64 12/26/24 16:48 Respiratory Rate 22 12/26/24 16:48 Blood Pressure 195/73 H 12/26/24 16:48 Pulse Oximetry 97 12/26/24 16:48 Oxygen Delivery Method Room Air 12/26/24 16:48 Course Orders Ordered: ED Orders 12/26/24 16:54 RT Consult Eval and Treat NOW 12/26/24 17:00 XR chest 1V Stat EKG-12 Lead Stat 12/26/24 17:08 Covid-19 + FLU A/B + RSV - PCR Stat Discontinued Medications Albuterol/Ipratropium (Albuterol/Ipratropium 3 Ml Ampul) 3 ml INH NOW ONE Stop: 12/26/24 17:11 Last Admin: 12/26/24 17:13 Dose: 3 ml Documented By: SAT Methylprednisolone (Methylprednisolone 125 Mg/2 Ml Vial) 125 mg IV NOW ONE Stop: 12/26/24 17:28 Last Admin: 12/26/24 17:51 Dose: 125 mg Documented By: AI Vital Signs Vital signs: Vital Signs - 8 hr 12/26/24 16:48 12/26/24 17:13 Temperature 97.8 F Pulse Rate 64 64 Respiratory Rate 22 18 Blood Pressure 195/73 H Pulse Oximetry 97 98 Oxygen Delivery Method Room Air Room Air Oxygen Flow Rate 0 MDM - SOB/Dyspnea Lab Data Labs: Lab Results 12/26/24 Range/Units 17:08 SARS-CoV-2 (PCR) Negative (Negative) Influenza A (RT-PCR) Flu a negative (NEGATIVE) Influenza B (RT-PCR) Flu b negative (NEGATIVE) RSV (PCR) Negative (Negative) Imaging Data Chest x-ray: Radiologist's Impression: [address] [address] XRay Report Signed Patient: Diana Francois MR#: [id number] : 1950 Acct:[id number] Age/Sex: 74 / F Date of Service: 12/26/24 Loc: ED Accession Number: [id number] Procedure: XR chest 1V Ordering Provider: Mak Farah D.O. PROCEDURE: XR CHEST 1V INDICATIONS: shortness of breath TECHNIQUE: One view of the chest was acquired. COMPARISON: [facility], CR, XR CHEST 1V, 12/25/2024, 1:16. FINDINGS: Surgical changes and devices: None. Lungs and pleura: Lungs are clear. No pleural effusions or pneumothorax. Mediastinum: Mediastinal contours appear normal. Heart size is normal. Bones and chest wall: No suspicious bony lesions. Age-appropriate bony degenerative changes are seen. Overlying soft tissues appear unremarkable. IMPRESSION: Portable chest within normal limits for age. ECG Data Attestation: I personally reviewed and interpreted this ECG as follows: Interpretation: NSR HR64 [place] 148 QRS [address] depression V4-6 unchanged from previous ekg 12/25/24 , 04/02/24, and 04/28/23 [facility] Narrative Medical decision making narrative: X-ray and viral panel do not show any acute process. Patient given DuoNeb Solu- Medrol Augmentin and Zithromax here. Differential diagnosis here includes COVID flu RSV pneumonia bronchitis COPD asthma exacerbation. DC home on Augmentin and Zithromax and hydrocodone cough syrup. Return with new or worsening symptoms. F/U with pcp 1-2 weeks. Discharge Plan Departure Patient Disposition: Home Clinical Impression: Pneumonia Qualifiers: Pneumonia type: due to Pneumococcus Laterality: bilateral Lung location: lower lobe of lung Qualified Code(s): J13 - Pneumonia due to Streptococcus pneumoniae Instructions: DI for Pneumonia -- Adult Activity Restrictions/Additional Instructions: Return with new or worsening symptoms. Take your medicines as directed. Follow up with PCP in 1-2 weeks Prescriptions: New azithromycin 250 mg tablet 250 mg PO DAILY 4 Days Qty: 4 0RF Rx Instructions: start on day 2 of therapy hydrocodone-homatropine 5-1.5 mg/5 mL syrup 5 ml PO Q6H PRN (Reason: cough) Qty: 473 0RF amoxicillin-pot clavulanate 875-125 mg tablet 1 tab PO Q12H Qty: 14 0RF No Action metoprolol succinate 25 mg tablet extended release 24 hr 25 mg PO DAILY Qty: 90 2RF meloxicam 7.5 mg tablet 7.5 mg PO DAILY PRN (Reason: arthritis pain) Qty: 90 1RF Rx Instructions: Take one tablet as needed daily for arthritis pain losartan 25 mg tablet 25 mg PO DAILY Qty: 90 0RF Nurtec ODT 75 mg tablet,disintegrating 75 mg PO ONCE PRN (Reason: migraine headache) Qty: 8 0RF Rx Instructions: as a single dose levalbuterol tartrate 45 mcg/actuation HFA aerosol inhaler See Rx Instructions inhalation .COMPLEX Qty: 15 0RF Rx Instructions: 1-2 puffs prior to exercise and/or with wheeze inhaled; not to exceed 12 puffs per 24 hours pravastatin 40 mg tablet 40 mg PO BEDTIME Qty: 90 3RF citalopram 20 mg tablet 20 mg PO DAILY Qty: 90 1RF B vitamins w folate PO magnesium glycinate PO albuterol sulfate 90 mcg/actuation HFA aerosol inhaler 2 puff inhalation Q4-6H PRN (Reason: shortness of breath or wheezing) Qty: 6.7 0RF doxycycline hyclate 100 mg capsule 100 mg PO BID Qty: 14 0RF guaifenesin 1,200 mg tablet extended release 12hr 1,200 mg PO BID Qty: 30 0RF benzonatate 200 mg capsule 200 mg PO TID Qty: 30 0RF prednisone 20 mg tablet See Rx Instructions .ROUTE .COMPLEX Qty: 12 0RF Rx Instructions: 40mg x 3 days, 20mg x 4 days, 10mg x4 days Referrals: Junie Sawyer DO [Primary Care Provider] - Stand Alone Forms: Patient Portal/API/Survey
[2024-12-26] MEDS: methylPREDNISolone 125 MG/2 ML VIAL IV (17:51)
[2024-12-26 17:56] LABS: Influenza A - CEPHEID Flu A NEGATIVE (NEGATIVE); Influenza B - CEPHEID Flu B NEGATIVE (NEGATIVE); Respiratory Syncytial Virus Negative (Negative)
[2024-12-26 17:57] LABS: COVID-19 CEPHEID 4-PLEX PCR Negative (Negative)
[2024-12-26] MEDS: AZITHROMYCIN 250 MG TABLET 500 MG PO (18:27)
[2024-12-26] MEDS: AMOXICILLIN/CLAV 875/125 MG 1 TAB PO (18:27)
== END 2024-12-26 18:47 | disposition home or self-care (01) ==
PROVIDERS: Emergency Provider Family Medicine; PCP Family Medicine
DX: J13 Pneumonia due to Streptococcus pneumoniae (principal); I42.9 Cardiomyopathy, unspecified; Z86.79 Personal history of other diseases of the circulatory system
CPT/HCPCS: 0241U; 36415; 71045; 93005; 93010; 94640; 96374; 99284; J2919

== ENCOUNTER 2024-12-29 10:29 | Emergency (ER) | payer MEDICARE, OTHER, SELFPAY ==
[2024-12-29 10:36] VITALS: BP 144/65; PULSE 64; RESP 18; TEMP 36.4; O2SAT 98; BMI 27.8
--- NOTE | 2024-12-29 10:41 | ED.SOB ---
HPI - SOB/Dyspnea General Chief Complaint: Shortness of Breath/Dyspnea Stated Complaint: Hard time breathing , getting better from ER visit Time Seen by Provider: 12/29/24 10:41 History of Present Illness HPI Narrative: Patient is a 74-year-old female history of hypertension, hyperlipidemia, comes into the ED from home for evaluation of shortness breath. Patient has been seen here multiple times for the same symptoms. She states that she was diagnosed with pneumonia has been taking her antibiotics, however she states that her symptoms have not completely resolved but have improved, she states that she is concerned therefore decided come into the ED for further evaluation treatment. Patient states that she has been using her metered-dose inhaler with spacer at home. She denies any new symptoms just complaining of cough shortness of breath. She was discharged home on Augmentin and Zithromax as well as hydrocodone cough syrup. She states that she did take 20 mg of prednisone earlier today. Related Data Home Medications Medication Instructions Recorded Confirmed B vitamins w folate PO 11/26/23 11/16/24 magnesium glycinate PO 11/26/23 11/16/24 Previous Rx's Medication Instructions Recorded metoprolol succinate 25 mg 25 mg PO DAILY #90 tabs 06/10/24 tablet,extended release 24 hr meloxicam 7.5 mg tablet 7.5 mg PO DAILY PRN arthritis pain 06/21/24 #90 tabs losartan 25 mg tablet 25 mg PO DAILY #90 tabs 08/26/24 albuterol sulfate 90 mcg/actuation 2 puff inhalation Q4-6H PRN 10/05/24 aerosol inhaler shortness of breath or wheezing #6.7 grams benzonatate 200 mg capsule 200 mg PO TID #30 caps 10/06/24 doxycycline hyclate 100 mg capsule 100 mg PO BID #14 caps 10/06/24 guaifenesin 1,200 mg tablet, 1,200 mg PO BID #30 tabs 10/06/24 extended release 12 hr levalbuterol tartrate 45 See Rx Instructions inhalation 12/10/24 mcg/actuation aerosol inhaler .COMPLEX #15 grams citalopram 20 mg tablet 20 mg PO DAILY #90 tabs 12/23/24 pravastatin 40 mg tablet 40 mg PO BEDTIME #90 tabs 12/23/24 prednisone 20 mg tablet See Rx Instructions .Route 12/25/24 .COMPLEX #12 tabs amoxicillin 875 mg-potassium 1 tab PO Q12H #14 tabs 12/26/24 clavulanate 125 mg tablet azithromycin 250 mg tablet 250 mg PO DAILY 4 days #4 tabs 12/26/24 hydrocodone-homatropine 5 mg-1.5 5 ml PO Q6H PRN cough #473 mL 12/27/24 mg/5 mL oral syrup rimegepant 75 mg disintegrating 75 mg PO ONCE PRN migraine 12/28/24 tablet ([facility] ODT) headache #8 tabs benzonatate 100 mg capsule 100 mg PO TID 1 week #21 caps 12/29/24 Allergies Allergy/AdvReac Type Severity Reaction Status Date / Time aspirin AdvReac Intermediate dyspnea Verified 12/26/24 16:53 sumatriptan [From Imitrex] AdvReac Mild Numbness Verified 12/28/24 13:55 Review of Systems Review of Systems Narrative: General: Denies fever, chills, weight loss HEENT: Denies headache, eye drainage, eye irritation, head trauma, sore throat, voice change Cardiovascular: Denies any chest pain, palpitations, tachycardia Respiratory: Positive shortness breath, cough, denies wheeze stridor GI/: Denies any abdominal pain, nausea, vomiting, diarrhea, bright red blood per rectum, melanotic stools, urinary frequency, urinary retention, dysuria, hematuria MSK: Denies any joint pain, muscle pains, swelling Skin: Denies any rashes, lesions, discoloration Neuro: Denies any headache, lightheadedness, dizziness, fainting, weakness Psych: Denies SI/HI Patient History Medical History Intractable migraine with status migrainosus Family history of aortic stenosis Transaminitis Wears glasses Hearing loss Osteoarthritis (~1999) Sleep apnea (~2019) Asthma Allergies Migraines (~1977) Osteopenia (~2008) Chicken pox Vertigo (~2017) Hx of cardiac murmur Surgical History Anesthesia History of total right knee replacement (~2020) History of shoulder surgery (~2014) History of left knee replacement (~2007) Status post rotator cuff repair (~2017) History of partial hysterectomy (~1981) Family History Father Cancer Mother Cancer Brother Diabetes mellitus Hyperlipidemia Brother Rheumatoid arthritis Heart valve replaced Hyperlipidemia History of heart disease Sister Arthritis Sister Rheumatoid arthritis Heart valve replaced Grandfather History of heart disease Grandmother Breast cancer Grandfather Cancer Grandmother Cancer Family/Other Crohn's disease Social History Smoking Status: Unknown if ever smoked alcohol intake: current substance use type: does not use Smoking Status: Unknown if ever smoked alcohol intake frequency: holidays/special occasions only Exam Narrative Exam Narrative: General: Cooperative, well-developed, not in acute distress HEENT: Normocephalic, atraumatic, PERRLA, normal sclera, eyelids normal Neck: Active full range of motion, atraumatic Chest: Normal to inspection, negative crepitus, no overlying erythema ecchymosis Respiratory: Patient coughing on exam, very mild expiratory wheezes to lower lung rodriguez, as patient is speaking full sentences protecting airway not requiring any supplemental oxygen no voice changes no stridor no trismus Cardiology: Regular rate rhythm negative gallop, murmur, rubs GI/: No tenderness to palpation, soft, non rigid, normal to inspection, exam deferred MSK: Full active range of motion in all 4 extremities, atraumatic, no tenderness to palpation of any bony prominences Skin: No rashes or lesions noted Neuro: Alert awake oriented x3, moves all 4 extremities spontaneously, cranial nerves intact, able to answer all questions appropriately follows commands appropriately Psych: Cooperative, negative suicidal or homicidal ideations Initial Vital Signs Initial Vital Signs: Vital Signs Temperature 97.6 F 12/29/24 10:36 Pulse Rate 64 12/29/24 10:36 Respiratory Rate 18 12/29/24 10:36 Blood Pressure 144/65 H 12/29/24 10:36 Pulse Oximetry 98 12/29/24 10:36 Oxygen Delivery Method Room Air 12/29/24 10:36 Course Orders Ordered: ED Orders 12/29/24 10:40 RT Consult Eval and Treat NOW 12/29/24 10:43 XR chest 1V Stat EKG-12 Lead Stat 12/29/24 11:05 Complete Blood Count AUTO DIFF Stat Comprehensive Metabolic Panel Stat Lipase Stat MAG [Magnesium] Stat NT-proBNP (BNP-Adult 18+) Stat Troponin & CK Cardiac Panel Stat 12/29/24 13:18 Trop I [Troponin I] Stat Albuterol (Albuterol 2.5 Mg/3 Ml Neb (Adult)) 2.5 mg INH [id number] PRN PRN Reason: Shortness Of Breath Last Admin: 12/29/24 12:00 Dose: 2.5 mg Documented By: Admin: 12/29/24 10:46 Dose: 2.5 mg Documented By: MALVIN Discontinued Medications Albuterol/Ipratropium (Albuterol/Ipratropium 3 Ml Ampul) 3 ml INH NOW ONE Stop: 12/29/24 10:42 Magnesium Sulfate (Magnesium Sulfate) 2 gm in 50 mls @ 150 mls/hr IV NOW ONE Stop: 12/29/24 11:11 Last Infusion: 12/29/24 11:56 Dose: Infused Documented By: LEYDI Co-signed By: SHANON Admin: 12/29/24 11:26 Dose: 150 mls/hr Documented By: LEYDI Co-signed By: SHANON(2) Prednisone (Prednisone 20 Mg Tablet) 20 mg PO NOW ONE Stop: 12/29/24 10:45 Last Admin: 12/29/24 11:26 Dose: 20 mg Documented By: LEYDI Vital Signs Vital signs: Vital Signs - 8 hr 12/29/24 10:36 12/29/24 10:47 12/29/24 11:08 Temperature 97.6 F Pulse Rate 64 65 70 Respiratory Rate 18 18 Blood Pressure 144/65 H Pulse Oximetry 98 99 99 Oxygen Delivery Method Room Air Room Air Oxygen Flow Rate 0 12/29/24 11:11 12/29/24 11:11 12/29/24 11:30 Temperature Pulse Rate 70 Respiratory Rate Blood Pressure 134/84 126/57 L Pulse Oximetry 99 Oxygen Delivery Method Oxygen Flow Rate 12/29/24 11:30 Temperature Pulse Rate 73 Respiratory Rate 22 Blood Pressure Pulse Oximetry 98 Oxygen Delivery Method Oxygen Flow Rate MDM - SOB/Dyspnea Differential Diagnosis Differential diagnosis: Likely acute exacerbation of chronic obstructive airways disease, congestive heart failure, community acquired pneumonia and other (Pneumonia, electrolyte abnormality) Lab Data 12/29/24 11:05 12/29/24 11:05 Labs: Lab Results 12/29/24 12/29/24 Range/Units 11:05 13:18 WBC 12.6 H (4.5-11.0) X10^3/uL RBC 4.41 (4.0-5.2) X10^6/uL Hgb 13.0 (12.0-16.0) g/dL Hct 39.0 (36-46) % MCV 88.4 (80-100) fL MCH 29.4 (26-34) PG MCHC 33.3 (30-36) % RDW 13.2 (11.6-14.8) % Plt Count 354 (150-400) X10^3/uL Neut % (Auto) 73.9 (50-75) % Lymph % (Auto) 20.7 L (25-40) % [place] % (Auto) 4.0 (3-14) % Eos % (Auto) 1.0 L (2-4) % Baso % (Auto) 0.4 (0-2) % Neut # (Auto) 9300 H (4479-6945) /uL Lymph # (Auto) 2600 (3556-4004) /uL [place] # (Auto) 500 (0-900) /uL Eos # (Auto) 100 (0-450) /uL Baso # (Auto) 100 (0-100) /uL Sodium 137 (137-145) mmol/L Potassium 4.3 (3.4-5.1) mmol/L Chloride 105 (98-107) mmol/L Carbon Dioxide 24 (22-32) mmol/L BUN 25 H (7-17) mg/dL Creatinine 1.08 H (0.52-1.04) mg/dL Estimated GFR 54 L (>60) mL/min BUN/Creatinine Ratio 23.1 H (6-22) Glucose 110 (80-110) mg/dL Calcium 9.1 (8.4-10.2) mg/dL Magnesium 2.0 (1.6-2.3) mg/dL Total Bilirubin 0.4 (0.2-1.3) mg/dL AST 31 (14-36) IU/L ALT 24 (<35) IU/L Alkaline Phosphatase 59 (38-126) U/L Total Creatine Kinase 66 (30-135) U/L Troponin I 0.034 0.029 (0.01-0.034) ng/mL NT-Pro-B Natriuret Pep 199 H (<125) pg/mL Total Protein 7.1 (6.3-8.2) g/dL Albumin 4.1 (3.5-5.0) g/dL Globulin 3.0 (1.7-4.1) g/dL Albumin/Globulin Ratio 1.4 (1.0-2.8) Lipase 77 (23-300) U/L Imaging Data Chest x-ray: Radiologist's Impression: [address] [address] XRay Report Signed Patient: Diana Francois MR#: [id number] : 1950 Acct:[id number] Age/Sex: 74 / F Date of Service: 12/29/24 Loc: ED Accession Number: [id number] Procedure: XR chest 1V Ordering Provider: George Rosas D.O. PROCEDURE: XR CHEST 1V INDICATIONS: Shortness breath, history of pneumonia TECHNIQUE: One view of the chest was acquired. COMPARISON: [facility], , XR CHEST 1V, 12/26/2024, 16:58. FINDINGS: Surgical changes and devices: None. Lungs and pleura: Lungs are clear. No pleural effusions or pneumothorax. Mediastinum: Mediastinal contours appear normal. Heart size is normal. Bones and chest wall: No suspicious bony lesions. Overlying soft tissues appear unremarkable. IMPRESSION: No acute pulmonary process. ECG Data Interpretation: EKG interpreted ED physician sinus 70 beats per minute QTC [address] changes no STEMI MDM Narrative Medical decision making narrative: 74-year-old female with a history of hypertension hyperlipidemia presenting for persistent cough shortness of breath ongoing for the past several days, this is patient's 3rd visit for the same. Previously patient was discharged home with Augmentin and Zithromax as well as steroids, she states that she has been compliant with this, states that she has completed 5/7 days, but states that she feels like her symptoms are not going away, she states that she does feel better but is worried that the medications are ?not working. On initial evaluation patient is speaking full sentences protecting airway, she is coughing with very mild expiratory wheezes in lung rodriguez, did order additional 20 mg of prednisone, as well as breathing treatment, patient also had repeat imaging, EKG and lab work performed here in the emergency department. Chest x-ray without any acute cardiopulmonary abnormality. EKG nonischemic in nature, patient did have elevation in her white blood cells at 12.6 most likely secondary to her steroid use. Patient had initial troponin indeterminate at 0.034, repeat at 0.029. Patient not having any actual chest pain. She had improvement of her symptoms after administration of steroids, breathing treatment and magnesium here, she was instructed to continue her medications that was she was prescribed previously we will send her home also with Katelyn Maldonado, informed to follow up with her scheduled appointments with her primary care doctor and wirer helper, strict return precautions given she verbalized understanding of this and agrees to being discharged home with outpatient follow up Discharge Plan Departure Patient Disposition: Home Clinical Impression: Bronchitis Instructions: DI for Acute Bronchitis Activity Restrictions/Additional Instructions: Please continue taking the medications that you were previously prescribed to completion Follow up with your primary care doctor and your wirer helper for your scheduled appointment Please read the discharge instructions sheet carefully and bring all papers to all doctor follow-up visits, as it may contain information that your doctor may want to see. Disease processes change and evolve, if your symptoms worsen or if you develop any new symptoms that are concerning to you please return for evaluation. Your evaluation today does not show any evidence of any life-threatening/serious illnesses requiring admission to the hospital or surgery. Please follow-up with your doctor for re-evaluation in approximately 1 day. Seek immediate medical attention for any worrisome symptoms. *If you do not have a primary care provider please contact the [facility] Resource line at [phone]. They will ask some questions about your medical history and help get you set up with a doctor in the community. Prescriptions: New benzonatate 100 mg capsule 100 mg PO TID 7 Days Qty: 21 0RF No Action metoprolol succinate 25 mg tablet extended release 24 hr 25 mg PO DAILY Qty: 90 2RF meloxicam 7.5 mg tablet 7.5 mg PO DAILY PRN (Reason: arthritis pain) Qty: 90 1RF Rx Instructions: Take one tablet as needed daily for arthritis pain losartan 25 mg tablet 25 mg PO DAILY Qty: 90 0RF levalbuterol tartrate 45 mcg/actuation HFA aerosol inhaler See Rx Instructions inhalation .COMPLEX Qty: 15 0RF Rx Instructions: 1-2 puffs prior to exercise and/or with wheeze inhaled; not to exceed 12 puffs per 24 hours pravastatin 40 mg tablet 40 mg PO BEDTIME Qty: 90 3RF citalopram 20 mg tablet 20 mg PO DAILY Qty: 90 1RF hydrocodone-homatropine 5-1.5 mg/5 mL syrup 5 ml PO Q6H PRN (Reason: cough) Qty: 473 0RF Nurtec ODT 75 mg tablet,disintegrating 75 mg PO ONCE PRN (Reason: migraine headache) Qty: 8 0RF Rx Instructions: as a single dose B vitamins w folate PO magnesium glycinate PO albuterol sulfate 90 mcg/actuation HFA aerosol inhaler 2 puff inhalation Q4-6H PRN (Reason: shortness of breath or wheezing) Qty: 6.7 0RF doxycycline hyclate 100 mg capsule 100 mg PO BID Qty: 14 0RF guaifenesin 1,200 mg tablet extended release 12hr 1,200 mg PO BID Qty: 30 0RF benzonatate 200 mg capsule 200 mg PO TID Qty: 30 0RF prednisone 20 mg tablet See Rx Instructions .ROUTE .COMPLEX Qty: 12 0RF Rx Instructions: 40mg x 3 days, 20mg x 4 days, 10mg x4 days azithromycin 250 mg tablet 250 mg PO DAILY 4 Days Qty: 4 0RF Rx Instructions: start on day 2 of therapy amoxicillin-pot clavulanate 875-125 mg tablet 1 tab PO Q12H Qty: 14 0RF Referrals: Junie Sawyer DO [Primary Care Provider] - Stand Alone Forms: Patient Portal/API/Survey
--- NOTE | 2024-12-29 10:43 | DI.RAD.S_ITS ---
PROCEDURE: XR CHEST 1V INDICATIONS: Shortness breath, history of pneumonia TECHNIQUE: One view of the chest was acquired. COMPARISON: [facility], CR, XR CHEST 1V, 12/26/2024, 16:58. FINDINGS: Surgical changes and devices: None. Lungs and pleura: Lungs are clear. No pleural effusions or pneumothorax. Mediastinum: Mediastinal contours appear normal. Heart size is normal. Bones and chest wall: No suspicious bony lesions. Overlying soft tissues appear unremarkable. IMPRESSION: No acute pulmonary process. Dictated by: Kandis Shepherd M.D. on 12/29/2024 at 11:10 Approved by: Kandis Shepherd M.D. on 12/29/2024 at 11:11
[2024-12-29] MEDS: ALBUTEROL 2.5 MG/3 ML NEB (ADULT) INH ×2 (10:46→12:00)
[2024-12-29 10:47] VITALS: PULSE 65; RESP 18; O2SAT 99
[2024-12-29 11:08] VITALS: PULSE 70; O2SAT 99
[2024-12-29 11:11] VITALS: BP 134/84; PULSE 70; O2SAT 99
[2024-12-29 11:13] LABS: Add Manual Diff / Slide Review NO; Basophils Absolute Auto 100 /uL (0-100); Basophils Percent Auto 0.4 % (0-2); Eosinophils Absolute Auto 100 /uL (0-450); Lymphocytes Absolute Auto 2600 /uL (1100-4500); Lymphocytes Percent Auto 20.7 % (25-40); Mean Corpuscular HGB Conc 33.3 % (30-36); Mean Corpuscular Hemoglobin 29.4 PG (26-34); Mean Corpuscular Volume 88.4 fL (80-100); Monocytes Absolute Auto 500 /uL (0-900); Neutrophils Absolute Auto 9300 /uL (1500-7000); Neutrophils Percent Auto 73.9 % (50-75); Platelet Count 354 X10^3/uL (150-400); Red Blood Cell Count 4.41 X10^6/uL (4.0-5.2); Red Cell Distribution Width 13.2 % (11.6-14.8); White Blood Cell Count 12.6 X10^3/uL (4.5-11.0)
--- NOTE | 2024-12-29 11:15 | EKG_ITS ---
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
[2024-12-29] MEDS: MAGNESIUM SULFATE 2 GM/50 ML PIGGYBACK IV (11:26)
[2024-12-29] MEDS: predniSONE 20 MG TABLET PO (11:26)
[2024-12-29 11:29] LABS: Alanine Aminotransferase 24 IU/L (<35); Albumin 4.1 g/dL (3.5-5.0); Albumin Globulin Ratio 1.4 (1.0-2.8); Alkaline Phosphatase 59 U/L (38-126); Aspartate Aminotransferase 31 IU/L (14-36); BUN Creatinine Ratio 23.1 (6-22); Bilirubin Total 0.4 mg/dL (0.2-1.3); Blood Urea Nitrogen 25 mg/dL (7-17); Calcium 9.1 mg/dL (8.4-10.2); Carbon Dioxide 24 mmol/L (22-32); Chloride 105 mmol/L (98-107); Creatine Kinase 66 U/L (30-135); Estimated Glomerular Filt Rate 54 mL/min (>60); Glucose 110 mg/dL (80-110); HEMOLYSIS 35 (0-50); Lipase 77 U/L (23-300); Potassium 4.3 mmol/L (3.4-5.1); Sodium 137 mmol/L (137-145); Total Protein 7.1 g/dL (6.3-8.2)
[2024-12-29 11:30] VITALS: BP 126/57; PULSE 73; RESP 22; O2SAT 98
[2024-12-29 11:40] LABS: NT-proBNP (BNP-Adult 18+) 199 pg/mL (<125); Troponin I 0.034 ng/mL (0.01-0.034)
--- NOTE | 2024-12-29 11:57 | PC.NURSE ---
Expiratory wheezing persists after Mag and first neb. Pt reports no relief. RT paged for re-eval
[2024-12-29 13:50] LABS: Troponin I 0.029 ng/mL (0.01-0.034)
[2024-12-29 14:11] VITALS: BP 141/63; PULSE 66; RESP 24; TEMP 36.8; O2SAT 99
== END 2024-12-29 14:15 | disposition home or self-care (01) ==
PROVIDERS: Emergency Provider Student in an Organized Health Care Education/Training Program; PCP Family Medicine
DX: J20.9 Acute bronchitis, unspecified (principal); I10 Essential (primary) hypertension; R06.02 Shortness of breath
CPT/HCPCS: 36415; 71045; 80053; 82550; 83690; 83735; 83880; 84484; 85025; 93005; 93010; 94640; 96365; 99284; J3475; J7613

== ENCOUNTER 2025-02-09 12:30 | Outpatient (RCR) | payer MEDICARE, OTHER, SELFPAY | END 2025-02-09 14:30 | LOC: PUL 12:30 | PROVIDERS: PCP Family Medicine; Referring Provider Family Medicine; Visit Provider Family Medicine | DX: R06.02 Shortness of breath (principal) | CPT/HCPCS: G0237; G0238 ==